=== PATIENT | female | born 1995 | race Caucasian/White ===

== ENCOUNTER 2025-01-18 16:17 | Emergency (ER) | payer BC, SELFPAY ==
[2025-01-18] VITALS (7 sets, daily range): BP systolic 121–153; BP diastolic 79–102; PULSE 68–100; RESP 16–20; TEMP 36.8; O2SAT 98–99; BMI 43.9
--- NOTE | 2025-01-18 16:49 | ED.FEMALEGU ---
HPI - Female Genitourinary General Chief complaint: Urogenital Problems, Female <Marco A Rayo MD - Last Filed: 01/19/25 07:23> Stated complaint: Blood in Urine <Marco A Rayo MD - Last Filed: 01/19/25 07:23> Time Seen by Provider: 01/18/25 16:40 <Marco A Rayo MD - Last Filed: 01/19/25 07:23> History of Present Illness HPI Narrative: Patient is a 3 para [age]-year-old woman who is 27 weeks with her 2nd child. She comes in today with a 6 hours of hematuria. She has not felt any contractions. She does not believes she is having vaginal discharge. She has had normal movements today. She has had no cough no shortness of breath no abdominal pain. Urinary frequency and hematuria accompanied by mild dysuria. No other complaints or concerns. <Marco A Rayo MD - Last Filed: 01/19/25 07:23> Related Data Home medications: Home Medications ?Medication ?Instructions ?Recorded ?Confirmed aspirin 81 mg tablet,delayed 81 mg PO QDAY 12/22/24 01/18/25 release (Adult Aspirin Regimen) vits no.126-ferrous fum tab PO QDAY 12/22/24 12/22/24 28 mg iron-folic acid 800 mcg tablet (Classic ) <Marco A Rayo MD - Last Filed: 01/19/25 07:23> Allergies/Adverse reactions: Allergies Allergy/AdvReac Type Severity Reaction Status Date / Time No Known Drug Allergies Allergy Verified 01/18/25 16:30 <Marco A Rayo MD - Last Filed: 01/19/25 07:23> Review of Systems Status of ROS: Reports: 10 or more systems reviewed and unremarkable except as noted in History and below <Marco A Rayo MD - Last Filed: 01/19/25 07:23> [facility] Medical History: Medical History History of irregular menstrual bleeding ?Z87.42 - Personal history of other diseases of the female genital tract (ICD-10) History of IUFD (05/07/20) ?Z87.59 - Personal history of other complications of , childbirth and the puerperium (ICD-10) <Marco A Rayo MD - Last Filed: 01/19/25 07:23> Surgical History: Surgical History History of appendectomy (~2006) ?Z90.49 - Acquired absence of other specified parts of digestive tract (ICD-10) Status post primary low transverse section (04/01/21) ?Z98.891 - History of uterine scar from previous surgery (ICD-10) <Marco A Rayo MD - Last Filed: 01/19/25 07:23> Social History: Social History Narrative: Cis-gender, heterosexual woman. Relationship status: . Spouse/Partner: Bipin Education: not reported Occupation: Not reported Tobacco: Lifetime nonsmoker E-cigarettes: No Alcohol: None during Illicit/recreational drugs: No Safety concerns at home or work: None Dietary restriction(s): None Exercise: No. Smoking Status: Never smoker How often do you have a drink containing alcohol: never AUDIT-C Alcohol total score: 0 Non-prescribed substance use: denies use <Marco A Rayo MD - Last Filed: 01/19/25 07:23> Exam Narrative: Exam Narrative: EXAM GENERAL: Patient appears comfortable and well. EYES: No scleral icterus. LYMPH: No supraclavicular or cervical lymphadenopathy. SKIN: Visible skin seen during exam normal or with benign process only. EXT: No dependent lower extremity pedal edema. HEART: Regular rate and rhythm with a soft 2/6 systolic murmur. LUNGS: Clear to auscultation bilaterally with no crackles or wheezes. ABD: Soft, non tender, non distended. Gravid. PSYCH: Good eye contact, speech is not pressured. <Marco A Rayo MD - Last Filed: 01/19/25 07:23> Const: Vital Signs, click to edit/add: Vital Signs - 24 hr 01/18/25 16:32 01/18/25 16:36 01/18/25 17:25 Temperature 98.3 F Pulse Rate Pulse Rate [Pulse Oximeter] 100 Respiratory Rate 20 Blood Pressure 139/99 H Blood Pressure [Ri ght Upper Arm] 153/102 H 146/89 H Pulse Oximetry 98 Oxygen Delivery Me thod Room Air 01/18/25 17:31 01/18/25 18:01 01/18/25 18:31 Temperature Pulse Rate Pulse Rate [Pulse Oximeter] Respiratory Rate Blood Pressure 143/90 H 125/82 132/85 Blood Pressure [Ri ght Upper Arm] Pulse Oximetry Oxygen Delivery Me thod 01/18/25 19:01 Temperature Pulse Rate 68 Pulse Rate [Pulse Oximeter] Respiratory Rate 16 Blood Pressure 121/79 Blood Pressure [Ri ght Upper Arm] Pulse Oximetry 99 Oxygen Delivery Me thod <Marco A Rayo MD - Last Filed: 01/19/25 07:23> Vital Signs, click to edit/add: Vital Signs - 24 hr 01/18/25 16:32 01/18/25 16:36 01/18/25 17:25 Temperature 98.3 F Pulse Rate Pulse Rate [Pulse Oximeter] 100 Respiratory Rate 20 Blood Pressure 139/99 H Blood Pressure [Ri ght Upper Arm] 153/102 H 146/89 H Pulse Oximetry 98 Oxygen Delivery Me thod Room Air 01/18/25 17:31 01/18/25 18:01 01/18/25 18:31 Temperature Pulse Rate Pulse Rate [Pulse Oximeter] Respiratory Rate Blood Pressure 143/90 H 125/82 132/85 Blood Pressure [Ri ght Upper Arm] Pulse Oximetry Oxygen Delivery Me thod 01/18/25 19:01 Temperature Pulse Rate 68 Pulse Rate [Pulse Oximeter] Respiratory Rate 16 Blood Pressure 121/79 Blood Pressure [Ri ght Upper Arm] Pulse Oximetry 99 Oxygen Delivery Me thod <Jose F Keith MD - Last Filed: 01/18/25 18:59> Course Course ED Course: Patient seen and examined. Urinalysis pending. <Marco A Rayo MD - Last Filed: 01/19/25 07:23> Reevaluation(s) Reevaluation #1: Spoke to obstetrics. They do recommend CBC electrolytes liver function tests given her elevated blood pressure. We are following her blood pressure Q 30 minutes while she is here. <Marco A Rayo MD - Last Filed: 01/19/25 07:23> Vital Signs Vital signs: Initial Vital Signs Temperature 98.3 F 01/18/25 16:32 Temperature Source Temporal Artery Scan 01/18/25 16:32 Pulse Rate 100 01/18/25 16:32 Respiratory Rate 20 01/18/25 16:32 Blood Pressure 153/102 H 01/18/25 16:32 Blood Pressure Mean 119 H 01/18/25 16:32 Pulse Oximetry 98 01/18/25 16:32 Oxygen Delivery Method Room Air 01/18/25 16:32 Vital Signs Temperature 98.3 F 01/18/25 16:32 Pulse Rate 100 01/18/25 16:32 Respiratory Rate 20 01/18/25 16:32 Blood Pressure 153/102 H 01/18/25 16:32 Pulse Oximetry 98 01/18/25 16:32 Oxygen Delivery Method Room Air 01/18/25 16:32 Temperature 98.3 F 01/18/25 16:32 Pulse Rate 68 01/18/25 19:01 Respiratory Rate 16 01/18/25 19:01 Blood Pressure 121/79 01/18/25 19:01 Pulse Oximetry 99 01/18/25 19:01 Oxygen Delivery Method Room Air 01/18/25 16:32 <Marco A Rayo MD - Last Filed: 01/19/25 07:23> Initial Vital Signs Temperature 98.3 F 01/18/25 16:32 Temperature Source Temporal Artery Scan 01/18/25 16:32 Pulse Rate 100 01/18/25 16:32 Respiratory Rate 20 01/18/25 16:32 Blood Pressure 153/102 H 01/18/25 16:32 Blood Pressure Mean 119 H 01/18/25 16:32 Pulse Oximetry 98 01/18/25 16:32 Oxygen Delivery Method Room Air 01/18/25 16:32 Vital Signs Temperature 98.3 F 01/18/25 16:32 Pulse Rate 100 01/18/25 16:32 Respiratory Rate 20 01/18/25 16:32 Blood Pressure 153/102 H 01/18/25 16:32 Pulse Oximetry 98 01/18/25 16:32 Oxygen Delivery Method Room Air 01/18/25 16:32 Temperature 98.3 F 01/18/25 16:32 Pulse Rate 68 01/18/25 19:01 Respiratory Rate 16 01/18/25 19:01 Blood Pressure 121/79 01/18/25 19:01 Pulse Oximetry 99 01/18/25 19:01 Oxygen Delivery Method Room Air 01/18/25 16:32 <Jose F Keith MD - Last Filed: 01/18/25 18:59> Medications Administered Medications: Discontinued Medications Generic Name Dose Route Start Last Admin Trade Name Freq PRN Reason Stop Dose Admin Ceftriaxone Sodium 1 gm 01/18/25 18:53 01/18/25 19:03 Ceftriaxone 1 Gm Vial IM 01/18/25 18:54 1 gm ONCE ONE Administration Ceftriaxone Sodium 1 gm/ 100 mls @ 200 mls/hr 01/18/25 18:20 01/18/25 19:03 Sodium Chloride IVPB 01/18/25 18:21 Not Given ONCE ONE Lidocaine HCl 2.1 ml 01/18/25 18:53 01/18/25 19:03 Lidocaine 1% 5 Ml (Pf) 5 Ml Vial IM 2.1 ml DIRECTED PRN Administration Pain <Marco A Rayo MD - Last Filed: 01/19/25 07:23> Discontinued Medications Generic Name Dose Route Start Last Admin Trade Name Freq PRN Reason Stop Dose Admin Ceftriaxone Sodium 1 gm 01/18/25 18:53 01/18/25 19:03 Ceftriaxone 1 Gm Vial IM 01/18/25 18:54 1 gm ONCE ONE Administration Ceftriaxone Sodium 1 gm/ 100 mls @ 200 mls/hr 01/18/25 18:20 01/18/25 19:03 Sodium Chloride IVPB 01/18/25 18:21 Not Given ONCE ONE Lidocaine HCl 2.1 ml 01/18/25 18:53 01/18/25 19:03 Lidocaine 1% 5 Ml (Pf) 5 Ml Vial IM 2.1 ml DIRECTED PRN Administration Pain <Jose F Keith MD - Last Filed: 01/18/25 18:59> MDM - Female Genitourinary MDM Narrative Medical decision making narrative: Sagar -- I inherited this patient in handoff a change of shift pending lab results. Has hypertension in . She is 27 weeks. Has been receiving regular blood pressure checks. In hand off noted to have reassuring NST. Consultation has been made with OBGYN. Labs look unremarkable other than appears to have urinary tract infection. I have requested Rocephin anticipating Keflex outpatient. Blood pressures have improved during time in the ER. 125/82 was recently measured. 135/83 OBGYN consult recommending close follow-up in clinic. <Jose F Keith MD - Last Filed: 01/18/25 18:59> Lab Data Attestation: I reviewed the patient's lab results. <Jose F Keith MD - Last Filed: 01/18/25 18:59> Labs: Lab Results 01/18/25 01/18/25 01/18/25 Range/Units 17:15 18:19 Unknown WBC 10.46 (4.50-11.00) K/uL RBC 4.49 (4.00-5.20) m/uL Hgb 13.1 (12.0-16.0) gm/dL Hct 39.0 (33.0-51.0) % MCV 87 (80-100) fL MCH 29 (26-34) pg MCHC 34 (32-36) gm/dL RDW Coeff of Ananya 13.3 (11.5-15.5) % Plt Count 288 (140-440) K/uL Neut % (Auto) 71.1 (42.0-72.0) % Lymph % (Auto) 20.4 (20-44) % Harrison % (Auto) 7.3 (0.0-11.0) % Eos % (Auto) 0.7 (0.0-7.0) % Baso % (Auto) 0.3 (0.0-3.0) % Neut # (Auto) 7.45 H (1.7-7.0) K/uL Lymph # (Auto) 2.13 (0.90-2.90) K/uL Harrison # (Auto) 0.80 (0.00-0.90) K/UL Eos # (Auto) 0.07 (0.00-0.50) K/uL Baso # (Auto) 0.03 (0.00-0.30) K/uL Abs Immat Gran (auto) 0.02 (0.00-0.30) K/uL Imm/Tot Granulo (auto) 0.2 % Sodium 136 (135-149) mmol/L Potassium 3.9 (3.6-5.1) mmol/L Chloride 107 (96-114) mmol/L Carbon Dioxide 22 (20-32) mmol/L Anion Gap 7 (7-15) mEq/L BUN 7 (5-24) mg/dL Creatinine 0.5 (0.5-1.5) mg/dL Estimated Creat Clear 162.90 Estimated GFR 131 ml/min Glucose 101 (60-115) mg/dL Calcium 9.7 (8.4-10.6) mg/dL Magnesium 1.7 (1.5-2.6) mg/dL Total Bilirubin 0.4 (0.1-1.5) mg/dL AST 22 (12-35) U/L ALT 19 (4-35) U/L Alkaline Phosphatase 85 (40-150) U/L Total Protein 7.3 (6.0-8.3) g/dL Albumin 4.0 (3.3-5.0) g/dL Urine Color Red A (Yellow) Urine Appearance Cloudy A (Clear) Urine pH 6.5 (5.0-8.5) Ur Specific [place] 1.020 (1.000-1.030) Urine Protein 3+ A (Negative) Urine Glucose (UA) Negative (Negative) Urine Ketones 1+ A (Negative) Urine Blood 3+ A (Negative) Urine Nitrite Positive A (Negative) Urine Bilirubin 2+ A (Negative) Urine Urobilinogen 4.0 A (0.2-1.0) Ur Leukocyte Esterase 3+ A (Negative) Urine RBC 50-100 A (0-2) Urine WBC 50-100 A (0-5) Ur Squamous Epith Cells None (None-Few) Urine Bacteria Moderate A (None) Lab Acknowledgement Test Added <Marco A Rayo MD - Last Filed: 01/19/25 07:23> Lab Results 01/18/25 01/18/25 01/18/25 Range/Units 17:15 18:19 Unknown WBC 10.46 (4.50-11.00) K/uL RBC 4.49 (4.00-5.20) m/uL Hgb 13.1 (12.0-16.0) gm/dL Hct 39.0 (33.0-51.0) % MCV 87 (80-100) fL MCH 29 (26-34) pg MCHC 34 (32-36) gm/dL RDW Coeff of Ananya 13.3 (11.5-15.5) % Plt Count 288 (140-440) K/uL Neut % (Auto) 71.1 (42.0-72.0) % Lymph % (Auto) 20.4 (20-44) % Harrison % (Auto) 7.3 (0.0-11.0) % Eos % (Auto) 0.7 (0.0-7.0) % Baso % (Auto) 0.3 (0.0-3.0) % Neut # (Auto) 7.45 H (1.7-7.0) K/uL Lymph # (Auto) 2.13 (0.90-2.90) K/uL Harrison # (Auto) 0.80 (0.00-0.90) K/UL Eos # (Auto) 0.07 (0.00-0.50) K/uL Baso # (Auto) 0.03 (0.00-0.30) K/uL Abs Immat Gran (auto) 0.02 (0.00-0.30) K/uL Imm/Tot Granulo (auto) 0.2 % Sodium 136 (135-149) mmol/L Potassium 3.9 (3.6-5.1) mmol/L Chloride 107 (96-114) mmol/L Carbon Dioxide 22 (20-32) mmol/L Anion Gap 7 (7-15) mEq/L BUN 7 (5-24) mg/dL Creatinine 0.5 (0.5-1.5) mg/dL Estimated Creat Clear 162.90 Estimated GFR 131 ml/min Glucose 101 (60-115) mg/dL Calcium 9.7 (8.4-10.6) mg/dL Magnesium 1.7 (1.5-2.6) mg/dL Total Bilirubin 0.4 (0.1-1.5) mg/dL AST 22 (12-35) U/L ALT 19 (4-35) U/L Alkaline Phosphatase 85 (40-150) U/L Total Protein 7.3 (6.0-8.3) g/dL Albumin 4.0 (3.3-5.0) g/dL Urine Color Red A (Yellow) Urine Appearance Cloudy A (Clear) Urine pH 6.5 (5.0-8.5) Ur Specific [place] 1.020 (1.000-1.030) Urine Protein 3+ A (Negative) Urine Glucose (UA) Negative (Negative) Urine Ketones 1+ A (Negative) Urine Blood 3+ A (Negative) Urine Nitrite Positive A (Negative) Urine Bilirubin 2+ A (Negative) Urine Urobilinogen 4.0 A (0.2-1.0) Ur Leukocyte Esterase 3+ A (Negative) Urine RBC 50-100 A (0-2) Urine WBC 50-100 A (0-5) Ur Squamous Epith Cells None (None-Few) Urine Bacteria Moderate A (None) Lab Acknowledgement Test Added <Jose F Keith MD - Last Filed: 01/18/25 18:59> Discharge Plan Discharge Clinical Impression: Cystitis, High blood pressure affecting in third trimester, antepartum <Marco A Rayo MD - Last Filed: 01/19/25 07:23> Patient Disposition: Home w/ Parent or Adult <Marco A Rayo MD - Last Filed: 01/19/25 07:23> Condition: Improved <Marco A Rayo MD - Last Filed: 01/19/25 07:23> Additional Instructions: Stay well-hydrated. Prescribing cephalexin from [facility]. Urine culture will be pending. Will call you if any changes need to be made to antibiotics. Please follow-up as as scheduled at your OB Clinic. <Marco A Rayo MD - Last Filed: 01/19/25 07:23> Prescriptions: No Action Classic 28 mg iron- 800 mcg tablet PO QDAY aspirin [Adult Aspirin Regimen] 81 mg tablet,delayed release (DR/EC) 81 mg PO QDAY <Marco A Rayo MD - Last Filed: 01/19/25 07:23> Follow Up/Referrals: Precious Newton MD [Primary Care Provider, Family Practice] <Marco A Rayo MD - Last Filed: 01/19/25 07:23> Stand Alone Forms: [facility] Info Instructions <Marco A Rayo MD - Last Filed: 01/19/25 07:23>
[2025-01-18 16:56] LABS: Appearance Urine Cloudy (Clear); Bilirubin Urine 2+ (Negative); Blood Urine 3+ (Negative); Color Urine Red (Yellow); Glucose Urine Negative (Negative); Ketones Urine 1+ (Negative); Leukocyte Esterase Urine 3+ (Negative); Nitrite Urine Positive (Negative); Protein Urine 3+ (Negative); pH Urine 6.5 (5.0-8.5)
[2025-01-18 17:03] LABS: Bacteria Urine Moderate; RBC Urine 50-100 (0-2); WBC Urine 50-100 (0-5)
[2025-01-18 17:20] LABS: Basophils Absolute Auto 0.03 K/uL (0.00-0.30); Basophils Percent Auto 0.3 % (0.0-3.0); Eosinophils Absolute Auto 0.07 K/uL (0.00-0.50); Eosinophils Percent Auto 0.7 % (0.0-7.0); Hemoglobin* 13.1 gm/dL (12.0-16.0); Immature Granulocytes Abs Auto 0.02 K/uL (0.00-0.30); Immature Granulocytes Pct Auto 0.2 %; Lymphocytes Absolute Auto 2.13 K/uL (0.90-2.90); Lymphocytes Percent Auto 20.4 % (20-44); Mean Corpuscular HGB Conc 34 gm/dL (32-36); Mean Corpuscular Hemoglobin 29 pg (26-34); Mean Corpuscular Volume 87 fL (80-100); Monocytes Percent Auto 7.3 % (0.0-11.0); Neutrophils Absolute Auto 7.45 K/uL (1.7-7.0); Neutrophils Percent Auto 71.1 % (42.0-72.0); Platelet Count* 288 K/uL (140-440); RDW Coefficient of Variation % 13.3 % (11.5-15.5); Red Blood Count 4.49 m/uL (4.00-5.20); White Blood Count* 10.46 K/uL (4.50-11.00)
[2025-01-18 17:24] LABS: Slide Review Reflex No
[2025-01-18 17:33] LABS: Chloride* 107 mmol/L (96-114)
[2025-01-18 17:34] LABS: Potassium* 3.9 mmol/L (3.6-5.1); Sodium* 136 mmol/L (135-149)
[2025-01-18 17:37] LABS: Alkaline Phosphatase* 85 U/L (40-150); Anion Gap 7 mEq/L (7-15); Bilirubin Total* 0.4 mg/dL (0.1-1.5); Blood Urea Nitrogen* 7 mg/dL (5-24); Calcium* 9.7 mg/dL (8.4-10.6); Carbon Dioxide* 22 mmol/L (20-32); Creatinine* 0.5 mg/dL (0.5-1.5); Estimated Glomerular Filt Rate 131 ml/min; Glucose* 101 mg/dL (60-115); Total Protein* 7.3 g/dL (6.0-8.3)
[2025-01-18 17:38] LABS: Alanine Aminotransferase* 19 U/L (4-35); Aspartate Amino Transferase* 22 U/L (12-35)
--- OUTSIDE RECORDS SUMMARY | 2025-01-18 17:57 | XMS_ITS | Clinical Summary ---
Author Organization [employer] [facility] Address [address] [place] [id number] Care Team Providers Care Senior Telecommunications Technician Name Role Phone AmanZita mcbride MD Primary Care Provider Allergies No known active allergies Medications vit 28/iron fum/folic (MULTIVITAMIN FOLIC ACID 1 MG) Take 1 tablet by mouth once daily. 0 0 Active aspirin chewable 81 mg chewable tabletIndication s:Maternal obesity syndrome in first trimester (HC),Encounter for supervision of other normal in first trimester (HC),History of loss Chew 1 Tablet (81 mg) by mouth once daily with a meal. 5 Active Breast Pump PurchaseIndicati ons:Care and examination of lactating mother (HC) Electric breast pump for home use. Gestational age at delivery: 40 weeks. Reason for need: return to work. Length of need: 99 months (lifetime use) 1 Each 5 Active Active Problems Problem Noted Date Diagnosed Date Maternal morbid obesity in second trimester, ant epartum 12/01/2024 Prior with d emise and current in second trimester 12/01/2024 History of delivery affecting 12/01/2024 [facility] High-risk supervision 10/21/2024 Overview (11/24/2024): Lluvia Medley : 1995 REFERRING PROVIDER/CLINIC LOCATION/FAX #: Zita Newton MD, Primary provider approves scheduling of recommended ultrasounds/testing: No [facility] ULTRASOUND/TESTING PATIENT Support person name: Bipin ULTRASOUND TYPE: L2 REASON FOR VISIT: BMI, HX IUFD 27w1d NEXT VISIT ALERTS: Final DANITA by Early Ultrasound LMP Date: Patient's last menstrual period was 06/22/2024 (exact date). DANITA: 03/29/25 Early US: Date: 09/17/24 GA: 10w0d DANITA: 04/15/2025. PrePregnancy Weight: 271.4 Height: 67.44 in BMI: 42 PLANS & FUTURE APPOINTMENTS: ULTRASOUND/GROWTH PLAN: - Through: - Growth: Next TESTING PLAN: - Testing: Through DELIVERY PLAN: Desires TOLAC - Scheduled delivery: - Preferred delivery location: PRIMARY DIAGNOSIS: 29 y.o. Estimated Date of Delivery: 04/15/25 MATERNAL BMI 42 Anxiety 2020 Term P LTCS -breech presentation 2019 27w1d IUFD, POC- Normal female karyotype PREVIOUS ULTRASOUNDS: 12/01/24 20w5d ECHO: SPECIALISTS/CONSULTS: Include: Specialty MD Clinic Name Phone# [place] and ADDED TO PATIENT CARE TEAM GENETICS: Declines/Not Done CARE COORDINATION: PERTINENT LABS: Labs reviewed? Yes Normal? Yes Blood type: O Rh Positive Antibody screen: Negative Non-[facility] labs need to be entered in EPIC? [facility] + PERTINENT MEDS: bASA PROCEDURES: IF FGR <10% or EFW <2000 grams: Add FGRPCOM PLAN OF CARE: 09/04/2024 Overview (09/04/2024): Estimated Date of Delivery: 03/29/25 Patient's last menstrual period was 06/22/2024 (exact date). GBS: 28wk labs: Last Tdap: 2020 Last Flu vaccine: 06/09/24 OB Labs: ABORH Date Value Ref Range Status 09/02/2024 O Rh Positive Final ANTIBODY SCREEN Date Value Ref Range Status 09/02/2024 Negative Negative Final TREPONEMA PALLIDUM Date Value Ref Range Status 09/02/2024 Non-Reactive Non-Reactive Final RUBELLA AB (IGG), IMMUNE STATUS Date Value Ref Range Status 09/02/2024 3.71 Index Final Comment: Index Interpretation ----- <0.90 Not consistent with immunity 0.90-0.99 Equivocal > or = 1.00 Consistent with immunity HEPATITIS B SURFACE ANTIGEN Date Value Ref Range Status 09/02/2024 NON-REACTIVE NON-REACTIVE Final HEPATITIS C ANTIBODY Date Value Ref Range Status 09/02/2024 NON-REACTIVE NON-REACTIVE Final HIV AG/AB, 4TH GEN Date Value Ref Range Status 09/02/2024 NON-REACTIVE NON-REACTIVE Final VARICELLA ZOSTER VIRUS ANTIBODY (IGG) Date Value Ref Range Status 09/02/2024 1.92 S/CO Final Comment: Signal to Cut-off S/CO Interpretation --------- <1.00 Negative - Antibody not detected > or = 1.00 Positive - Antibody detected HEMOGLOBIN Date Value Ref Range Status 09/02/2024 15.9 (H) 11.7 - 15.5 g/dL Final PLATELET COUNT Date Value Ref Range Status 09/02/2024 388 140 - 400 Thousand/uL Final CHLAMYDIA PROBE Date Value Ref Range Status 09/02/2024 Negative Final N GONORRHOEAE PROBE Date Value Ref Range Status 09/02/2024 Negative Final No Known Allergies OB History Para Term AB Living 4 2 1 1 1 1 SAB IAB Ectopic Multiple Live Births 1 0 0 0 1 # Outcome Date GA Lbr Timur/2nd Weight Sex Type Anes PTL Lv 4 Current 3 Term 04/01/21 39w3d 3.43 kg (7 lb 9 oz) M CS-LTranv SAURABH Name: Rene 2 05/08/20 27w1d F Vag FD 1 SAB 03/06/13 Comments: System Generated. Please review and update details. Obstetric Comments Breech Past Medical History: . Date History of intrauterine in previous No Significant Past Medical History 09/30/2020 Component Latest Ref Rng & Units 03/10/2021 HEMOGLOBIN 12.0 - 16.0 g/dL 14.6 MCV 80 - 100 fL 85 Vaginal/Rectal OB Strep B PCR Negative HEPATITIS C ANTIBODY Non-Reactive Non-Reactive Estimated Date of Delivery: 04/05/21 Patient's last menstrual period was 06/29/2020. Last Tdap- 01/05/2021 Past Surgical History: . Laterality Date APPENDECTOMY 08/13/2005 SECTION 03/2021 Paraguard T 03/28/2013 Problems (from 09/02/24 to present) No problems associated with this episode. Dianelys Ayala RN ....09/04/2024 3:42 PM Pap smear for cervical cancer screening 06/13/20 Overview (06/13/2024): 05/2024 NIL/HPV negative Plan: Pap/HPV due 05/2029 Generalized anxiety disorder 10/09/2012 Estimated Date of Delivery Comme nts Yes 04/15/2025 Based on Ultraso und Resolved Problems Problem Noted Date Diagnosed Date Resolved Date Encounter for supervision of normal in second trimester 12/01/2020 09/17/2024 09/30/2020 09/04/2024 Overview (03/16/2021): Component Latest Ref Rng & Units 03/10/2021 HEMOGLOBIN 12.0 - 16.0 g/dL 14.6 MCV 80 - 100 fL 85 Vaginal/Rectal OB Strep B PCR Negative HEPATITIS C ANTIBODY Non-Reactive Non-Reactive Estimated Date of Delivery: 04/05/21 Patient's last menstrual period was 06/29/2020. Last Tdap- 01/05/2021 Last Flu vaccine- 04/20/2020 Glucose (GTT) result- Component Latest Ref Rng & Units 12/31/2020 HEMOGLOBIN 12.0 - 16.0 g/dL 13.6 MCV 80 - 100 fL 87 GLUCOSE,GESTATIONAL 65 - 139 mg/dL 118 TREPONEMA PALLIDUM Negative Negative 20 week US: IMPRESSION: Intrauterine at 20w 2d. presentation is Cephalic. EFW 376 grams, percentile: 67. Growth parameters and estimated weight are appropriate for gestational age. No major structural anomalies identified. No markers for aneuploidy identified. Normal Deepest Vertical Pocket of amniotic fluid: 4.8 cm. Placental location: Anterior fundal. There is no evidence of placenta previa. The transabdominal cervical length is 3.6 cm. No Known Allergies OB History Para Term AB Living 3 1 0 1 1 0 SAB TAB Ectopic Multiple Live Births 1 0 0 0 0 # Outcome Date GA Lbr Timur/2nd Weight Sex Delivery Anes PTL Lv 3 Current 2 05/08/20 27w1d F Vag FD 1 SAB 03/06/13 Comments: System Generated. Please review and update details. Create lab flowsheet for OB labs- Component Latest Ref Rng & Units 09/13/2020 09/13/2020 09/13/2020 4:35 PM 4:35 PM 4:35 PM HEMOGLOBIN 12.0 - 16.0 g/dL 15.8 MCV 80 - 100 fL 84 ANTIBODY SCREEN Negative Negative SPECIMEN EXPIRATION DATE/TIME 09/16/20 23:59 RUBELLA IGG ANTIBODY Positive 5.11 HIV-1/HIV-2 ANTIBODY Non-Reactive Non-Reactive ABORH O Rh Positive HBSAG Nonreactive Nonreactive TREPONEMA PALLIDUM Negative Negative Past Medical History: . Date No Significant Past Medical History Past Surgical History: . Laterality Date APPENDECTOMY 2006 Paraguard T 03/28/2013 No data on file. 2 Problems (from 09/29/20 to present) No problems associated with this episode. Rosemarie Manzano RN.....09/30/2020 9:52 AM Encounter for supervision of normal first in second trimester 02/24/2020 05/14/2020 01/27/2020 05/14/2020 Overview (04/21/2020): Estimated Date of Delivery: 08/06/20 Patient's last menstrual period was 10/31/2019 (exact date). Last Tdap- 04/04/2007 Last Flu vaccine- 04/20/2020 Glucose (GTT) result- too early 20 week US: FINDINGS: Sonographic imaging demonstrates a single living intrauterine gestation. Fetus demonstrates a regular cardiac rate of 156 beats per minute. Fetus has a breech position. The placenta lies anteriorly without evidence of placenta previa. Amniotic fluid volume appears normal. Single deepest vertical pocket: 3.8 cm. The cervix is closed and measures 4.2 cm in length. The composite ultrasound gestational age is calculated at 20 weeks 1 day with an estimated sonographic due date of 08/09/2020. No Known Allergies OB History Para Term AB Living 2 0 0 0 1 0 SAB TAB Ectopic Multiple Live Births 1 0 0 0 0 # Outcome Date GA Lbr Timur/2nd Weight Sex Delivery Anes PTL Lv 2 Current 1 SAB 03/06/13 Comments: System Generated. Please review and update details. Create lab flowsheet for OB labs- Component Latest Ref Rng & Units 12/16/2019 12/16/2019 12/16/2019 8:51 AM 8:51 AM 8:51 AM ANTIBODY SCREEN Negative Negative SPECIMEN EXPIRATION DATE/TIME 12/19/19 23:59 HEMOGLOBIN 12.0 - 16.0 g/dL 15.2 MCV 80 - 100 fL 86 PLATELET COUNT 140 - 440 thou/cu mm 324 MPV 6.5 - 11.0 fL 9.6 RUBELLA IGG ANTIBODY Positive 5.07 HEMOGLOBIN A1C SCREENING <=6.4 % 4.8 ABORH O Rh Positive HBSAG Nonreactive Nonreactive HEPATITIS C ANTIBODY Non-Reactive Non-Reactive HIV-1/HIV-2 ANTIBODY Non-Reactive Non-Reactive TREPONEMA PALLIDUM Negative Negative Past Medical History: . Date No Significant Past Medical History Past Surgical History: . Laterality Date APPENDECTOMY 2006 Paraguard T 03/28/2013 No data on file. Problems (from 12/16/19 to present) No problems associated with this episode. Rosemarie Garnica RNC.....01/27/2020 12:46 PM Supervision of normal first 02/25/2013 03/18/2013 Encounters Date Type Department Care Team Description 12/24/2024 3:40 PM CDT OB Encounter [facility] [address] [place] [address] Zita Newton MD Care (24w/) 12/24/2024 Travel 12/01/2024 1:31 PM CDT - 12/01/2024 11:59 PM CDT Hospital En[facility] [address] [facility] [address] [facility] [address] Zita Newton MD Supervision of high risk in second trimester (HC) (Primary Dx); Maternal obesity syndrome in first trimester (HC); Encounter for supervision of other normal in first trimester (HC); History of loss; High-risk in second trimester (HC); Maternal morbid obesity in second trimester, antepartum (HC); Prior with demise and current in second trimester (HC); History of delivery affecting (HC) 12/01/2024 Travel 11/26/2024 2:50 PM CDT OB Encounter [facility] [address] [place] [address] Zita Newton MD Care (20W/Possible UTI, had blood in her urine) 11/25/2024 Travel 11/17/2024 Telephone [facility] [address] [place] [address] Zita Newton MD Appointment 11/16/2024 Travel 10/21/2024 Transcribe Orders [facility] [address] [place] [address] Zita Newton MD 10/20/2024 3:30 PM CDT OB Encounter [facility] [address] [place] [address] Zita Newton MD Care (14w 5d/) 10/20/2024 Travel from Last 3 Months Immunizations Immunization Administration Dates Next Due COVID-19 vaccine (MDCapsule NTech 30mcg/0.3mL) WINNIE SERRA 12/27/2020,12/27/2020,12/03/2020,12/03 DTP 05/07/1997, 7,1996,03/31 DTP-HIB 1996,1996,1996 DTaP 05/07/1997 HPV 9 (Gardasil 9) 03/26/2015 Hepatitis B (Adult) 1995,1996 Hepatitis B (Peds) 1995, 6,1996,01/28 Hepatitis B, Unspecified 1996 Hib Conjugate, Unspecified 1996,1996 ,1996 Human Papilloma Virus Vaccine 02/16/2015 INFLUENZA, IIV3 PF (AGE >= 6 MO) 06/09/2024 Influenza, IIV4 05/16/2023,05/13/2021,04/20/2020 MENINGOCOCCAL VACCINE 2 VIAL 2MO-55YO (MENVEO) 02/16/2015 MMR 05/07/1997 Meningococcal Vaccine (Menactra) 04/04/2007 Oral Polio Vaccine 05/07/1997, 7,1996,03/31 Tdap 01/05/2021,04/04/2007 Varicella Vaccine 04/04/2007,05/07/1997 Family History Medical History Relation Name Comments No Known Problems Father Coronary artery disease Maternal Grandfather Skin cancer Maternal Grandmother No Known Problems Mother Unknown Paternal Grandfather Unknown Paternal Grandmother No Known Problems Son Relation Name Status Comments Father Alive Maternal Grandfather Alive Maternal Grandmother Alive Mother Alive Paternal Grandfather Paternal Grandmother Son Alive Social History Tobacco Use Types Packs/Day Years Used Date Smoking Tobacco: Never Smokeless Tobacco: Never Tobacco Cessation:Counseling Given: Yes Alcohol Use Standard Drinks/Week Comments No 0 (1 standard drink = 0.6 oz pur e alcohol) PHQ-2 Answer Date Recorded PHQ-2 TOTAL SCORE 0 09/17/2024 Social Connections Answer Date Recorded Do you often feel lonely or isolated from those around you? 0 09/17/2024 Financial Resource Strain Answer Date R ecorded Difficulty of Paying Living Expenses 3 09/17/2024 Difficulty of Paying Living Expenses Not on file 09/17/2024 Food Insecurity Answer Date Recorded Do you worry your food will run out before you are able to buy more? 1 09/17/2024 Transportation Needs Answer Date Record ed Does lack of transportation keep you from medica l appointments? 1 09/17/2024 Does lack of transportation keep you from work, meetings or getting things that you need? 1 09/17/2024 Housing Stability Answer Date Recorded What is your housing situation today? 1 09/17/2024 Utilities Answer Date Recorded Do you have trouble paying f or utilities (for example, heat, electricity, water, phone)? 1 09/17/2024 Estimated Date of Delivery Comme nts Yes 04/15/2025 Based on Ultraso und Sex and Gender Information Value Date Recorded Sex Assigned at Female 11/30/2020 7:26 PM CDT Legal Sex Female 8:19 AM BAKER DOUGHNUT Gender Identity Female 11/30/2020 7:26 PM CDT Sexual Orientation Not on file Obstetrics History Para Term AB IAB SAB Ectopic Multiple Livin g Live Births 4 2 1 1 1 1 1 1 Date Outcome GA Total Labor Labor/2nd/3rd Weight Sex Type Anes PTL Saurabh A1 A5 Name Clin 013 SAB Comments:System Genera mark. Please review and update details. 020 27w 1d F Vag Demis e 021 Term 39w 3d 3.43 kg (7 lb 9 oz) M CS-LT ranv Livin g Rene Delivery Location:Hospital Current Comments Breech Summary Episode Dates Number of Fetuses Estimated Date of Delivery 09/02/2024 - Present (01/18/2025) 04/15/2025 (set by Yves Newton MD on 09/17/2024 based on Ultrasound on 09/17/2024) Dating Summary Based On DANITA GA Diff Last Menstrual Period on 06/22/2024 (Exact Date) 03/29/2025 +2w3d Comment:Has only had three p eriods since July 2023 Ultrasound on 09/17/2024 04/15/2025 Working GA:10w0d Vitals Pregravid Weight Height TWG (As of 01/18/2025) Pregrav id BMI 1.713 m (5' 7.44) Date GA Fund Present FHR Mvmt BP Weight Edema Alb Glu Ket Dil/ Eff/Sta 5 20w5d Inpatient data not displayed here. See encounter summary. Notes Progress Notes - OB Encounte r - 12/24/2024 - GA:24w0d 12/24/2024 - 24w0d - Zita Newton MD SUBJECTIVE: Lluvia Medley is a 29 y.o. female at 24 weeks. No concerns. See visit comments. OBJECTIVE: see OB vitals flow sheet ASSESSMENT : 24 weeks gestation Prior IUFD. Hx for breech, would like to TOLAC this . Maternal obesity, on 81 mg ASA PLAN: labor signs and symptoms reviewed with patient including pain, cramping, bleeding or leaking fluid. Follow up in 4 weeks with diabetes, hemoglobin, syphilis screening, growth ultrasound and TDaP. Consult with upper cutter for TOLAC. Will start weekly BPP at 30 weeks adn growth again at 34 weeks. RTC 4 weeks. Zita Newton MD .................... 12/24/2024 3:46 PM Progress Notes - OB Encounte r - 11/26/2024 - GA:20w0d 11/26/2024 - 20wd - Zita Newton MD SUBJECTIVE: Lluvia Medley is a 29 y.o. female at 20 weeks. Having increased frequency, wonders if UTI? See visit comments. OBJECTIVE: see OB vitals flow sheet ASSESSMENT : 20 weeks gestation Maternal obesity. Prior loss. Borderline blood pressure readings. Hx for breech presentation, hoping for TOLAC PLAN: labor signs and symptoms reviewed with patient including pain, cramping, bleeding or leaking fluid. Has level 2 ultrasound and consult 12/01/24 On ASA 81 mg [employer] Bever[employer] Intern consult for TOLAC UA for UTI symptoms. RTC 4 weeks. Zita Newton MD .................... 11/26/2024 3:06 PM Progress Notes - OB Encounte r - 10/20/2024 - GA:14w5d 10/20/2024 - wd - Zita Newton MD SUBJECTIVE: Lluvia Medley is a 29 y.o. female at 14+5 weeks. No concerns. See visit comments. OBJECTIVE: see OB vitals flow sheet ASSESSMENT : 14+5 weeks gestation Maternal obesity. Prior loss. Borderline blood pressure readings. Hx for breech presentation, hoping for TOLAC PLAN: Warning signs and symptoms reviewed with patient including pain, cramping, bleeding or leaking fluid. Level 2 ultrasound given maternal obesity and prior loss. Start 81 mg ASA. Food And Beverage Intern consult after ultrasound for TOLAC consent. RTC 4 weeks. Zita Newton MD .................... 10/20/2024 3:40 PM Progress Notes - OB Encounte r - 09/17/2024 - GA:10w0d 09/17/2024 - 10w0d - Zita Newton MD FIRST OB VISIT HPI: Lluvia Medley is a 29 y.o. female at 12w3d with [place] intrauterine here today for a initial OB exam. Estimated due date is Estimated Date of Delivery: 03/29/25 based on LMP. ultrasound dating today puts her at 10 weeks, 0 days, EDC 04/15/2025 Nausea/Vomiting: yes Breast tenderness: no Fatigue: no Bleeding: no Taking vitamins: yes Options of sequential screen, cell-free DNA testing, amniocentesis were discussed. Patient is not interested in pursuing testing. AMA: no Previous : yes, is interested in TOLAC. Prior for breech presentation OB History Para Term AB Living 4 2 1 1 1 1 SAB IAB Ectopic Multiple Live Births 1 1 # Outcome Date GA Lbr Timur/2nd Weight Sex Type Anes PTL Lv 4 Current 3 Term 04/01/21 39w3d 3.43 kg (7 lb 9 oz) M CS-LTranv SAURABH 2 05/08/20 27w1d F Vag FD 1 SAB 03/06/13 Comments: System Generated. Please review and update details. Obstetric Comments Breech Past Medical History: . Date History of intrauterine in previous No Significant Past Medical History 09/30/2020 Component Latest Ref Rng & Units 03/10/2021 HEMOGLOBIN 12.0 - 16.0 g/dL 14.6 MCV 80 - 100 fL 85 Vaginal/Rectal OB Strep B PCR Negative HEPATITIS C ANTIBODY Non-Reactive Non-Reactive Estimated Date of Delivery: 04/05/21 Patient's last menstrual period was 06/29/2020. Last Tdap- 01/05/2021 Past Surgical History: . Laterality Date APPENDECTOMY 08/13/2005 SECTION 03/2021 Paraguard T 03/28/2013 Family History Problem Relation Age of Onset No Known Problems Mother No Known Problems Father No Known Problems Son Skin cancer Maternal Grandmother Coronary artery disease Maternal Grandfather Unknown Paternal Grandmother Unknown Paternal Grandfather Social History Tobacco Use Smoking status: Never Smokeless tobacco: Never Substance Use Topics Alcohol use: No Current Outpatient Medications Medication Sig vit 28/iron fum/folic (MULTIVITAMIN FOLIC ACID 1 MG) Take 1 tablet by mouth once daily. No current facility-administered medications for this visit. Medications have been reviewed by me and are current to the best of my knowledge and ability. ALLERGIES Patient has no known allergies. MENTAL HEALTH HISTORY History of psychiatric diagnosis: Anxiety Current mental health provider: not applicable Currently taking any psychiatric medications? No INFECTION HISTORY Current Drug Use: none Relevant infection history from OB Questionnaire: none REVIEW OF SYSTEMS Comprehensive ROS complete and negative other than noted in HPI and on OB Questionnaire. PHYSICAL EXAM BP 138/95 (Cuff Site: Right Arm, Position: Sitting, Cuff Size: Adult Large) Pulse 87 Wt 124.7 kg (275 lb) LMP 06/22/2024 (Exact Date) Comment: Has only had three periods since July 2023 SpO2 97% BMI 42.51 kg/m General Appearance: Alert, appropriate appearance for age. No acute distress. HEENT Exam: Grossly normal. Neck/Thyroid Exam: Supple, no masses, nodes or enlargement. Lungs: Clear to auscultation bilaterally. Breast Exam: Not indicated. Cardiovascular Exam: Regular rate and rhythm. S1, S2, no murmur. Abd: Soft, non-tender, no masses or organomegaly. Skin: no rashes or lesions. Lymphatics: no nodes palpable. Psychiatric Exam: Alert and oriented x 3, appropriate affect. Pelvic Exam: deferred ASSESSMENT/PLAN 29 y.o. at 10w0d with [place] intrauterine . ICD-10-CM 1. Encounter for supervision of other normal in first trimester Z34.81 2. Maternal obesity syndrome in first trimester O99.211 Satisfactory exam. Demonstrates appropriate and health-seeking behaviors toward her . Verbalizes good understanding of care schedule and the importance of coming to each visit as scheduled. Start/continue vitamins. Reviewed labs. She was encouraged to call the office with any questions or concerns. Will plan on level 2 ultrasound at 20 weeks for maternal obesity and history of stillbirth. Recommend 81 mg ASA starting at next visit due to BMI >30, elevated blood pressure today and history of prior loss. She is interested in TOLAC, will plan to consult with supportive employment case manager after 20 week ultrasound. Body mass index is 42.51 kg/m . Diet and expected weight gain discussed with patient. DEPRESSION SCREEN PHQ Score and Severity Date of PHQ exam: 09/17/24 PHQ-2 TOTAL SCORE: 0 Intervention: Not Depressed Zita Newton MD R DOUGHNUT Progress Notes - OB Encounte r - 09/02/2024 - GA:7w6d 09/02/2024 - 7wd - Dianelys Ayala RN SUBJECTIVE: Lluvia Medley is a 29 y.o. female, , who presents for confirmation and ob education. Patient presents to the clinic with spouse and son. Had positive test at home. This was Planned, Desired. Patient was not on contraception. Date Reliability: definite DANITA based on LMP: Estimated Date of Delivery: 03/29/25 Current symptoms include: Nausea:Yes Vomiting:No Breast tenderness:No Vaginal bleeding:No Vaginal discharge:No Pelvic cramping:Yes - mild Fatigue:Yes - managable Previous Delivery Type: - desires Occupation of patient: [employer] Name of Partner or Father of baby: Bipin. MENSTRUAL HISTORY: Patient's last menstrual period was 06/22/2024 (exact date).: Cycle Regularity: regular, every 28-30 days only 3 periods after getting nexplanon out 07/2023, but they were all regular Past Medical History: . Date History of intrauterine in previous No Significant Past Medical History OB History Para Term AB Living 4 2 1 1 1 1 SAB IAB Ectopic Multiple Live Births 1 1 # Outcome Date GA Lbr Timur/2nd Weight Sex Type Anes PTL Lv 4 Current 3 Term 04/01/21 39w3d 3.43 kg (7 lb 9 oz) M CS-LTranv SAURABH 2 05/08/20 27w1d F Vag FD 1 SAB 03/06/13 Comments: System Generated. Please review and update details. Obstetric Comments Breech 5P'S SUBSTANCE ABUSE SCREEN FOR ALCOHOL, DRUGS AND TOBACCO: Did any of your parents have a problem with using alcohol or drugs? No Do any of your friends (peers) have problems with drug or alcohol use? No Does your partner have a problem with drug or alcohol use? No Before you knew you were , how often did you drink beer, wine, wine coolers or liquor or use any kind of drug? Rarely alcohol In the past month, how often did you drink beer, wine, wine coolers or liquor or use any kind of drug? Not at all How much did you smoke, vape or use tobacco or nicotine in any form before you knew you were ? Don't Smoke, Vape or use Tobacco Genetic Screening Genetic Screening/Teratology Counseling- Includes patient, baby's father, or anyone in either family with: Patient's age 35 years or older as of estimated date of delivery: No Thalassemia (Turkmen, Macedonian, Mediterranean, or background): MCV less than 80: No Neural tube defect (Meningomyelocele, Spina bifida, or Anencephaly): No Congenital heart defect: No Down syndrome: No Noble-Sachs (Ashkenazi Christian, Cajun, Cambodian [place]): No Chris disease (Ashkenazi Christian): No Familial dysautonomia (Ashkenazi Christian): No Sickle cell disease or trait (): No Hemophilia or other blood disorders: No Muscular dystrophy: No Cystic fibrosis: No Star's chorea: No Intellectual disability and/or autism: No Other inherited genetic or chromosomal disorder: No Maternal metabolic disorder (eg. Type 1 diabetes, PKU): No Patient or baby's father had child with defects not listed above: No Recurrent loss, or a stillbirth: Yes (Comment: maternal stillbirth) Medications (including supplements, vitamins, herbs, or OTC drugs)/illicit/recreational drugs/alcohol since last menstrual period: No CURRENT MEDICATIONS: Current Outpatient Medications Medication Sig vit 28/iron fum/folic (MULTIVITAMIN FOLIC ACID 1 MG) Take 1 tablet by mouth once daily. No current facility-administered medications for this visit. Medications have been reviewed by me and are current to the best of my knowledge and ability. ALLERGIES: Patient has no known allergies. OBJECTIVE: Ht 1.713 m (5' 7.44) Wt 123.2 kg (271 lb 9.6 oz) LMP 06/22/2024 (Exact Date) Comment: Has only had three periods since July 2023 BMI 41.98 kg/m ,URINE (no units) Date Value 05/25/2021 Negative ASSESSMENT/PLAN: No diagnosis found. EDUCATION/PATIENT INSTRUCTIONS - Advised patient to start/continue vitamin. - Discussed risk of using alcohol, tobacco, other drugs in . - Discussed healthy lifestyle in . - Provided copy of Beginnings book and book inserts, discussed ylxt-hru-bouujts medications, and follow up. - Encouraged patient to call clinic at [phone] with any vaginal bleeding, fluid leaking from vagina, severe abdominal pain, nausea with severe vomiting, fever higher than 100.4F, painful urination, headache not relieved by Tylenol, or other concerns - labs completed with today's visit. - Patient informed to schedule 1st trimester dating ultrasound between 7-10 weeks. - Initial OB appointment with FP/OB scheduled. PHQ-9, and COVID-19 vaccine discussion to be completed at this visit. Future Appointments Date Time Provider Department Center 09/17/2024 1:00 PM NFLD ULTRASOUND NFMI [facility] 09/17/2024 2:25 PM Zita Newton MD NFLDFP [facility] Dianelys Ayala RN .................... 09/02/2024 2:11 PM R DOUGHNUT R DOUGHNUT Last Filed Vital Signs Vital Sign Reading Time Taken Comments Blood Pressure 131/83 12/24/2024 3:37 PM CDT Pulse 88 12/24/2024 3:37 PM CDT Temperature 36.4 C (97.6 F) 03/31/2021 11:20 AM CDT Respiratory Rate - - Oxygen Saturation 99% 12/24/2024 3:37 PM CDT Inhaled Oxygen Concentration - - Weight 126 kg (277 lb 12.8 oz) 12/24/2024 3:37 P M CDT Height 171.3 cm (5' 7.44) 09/02/2024 1:58 PM CS T Body Mass Index 42.94 09/02/2024 1:58 PM BAKER DOUGHNUT Plan of Treatment Upcoming Encounters Date Type Department Care Team (Late st Contact Info) Description 01/21/2025 1:45 PM CDT Ancillary Procedure [facility] [address] [address] 01/21/2025 2:50 PM CDT OB Encounter [facility] [place] [address] Zita Newton MD [facility] [address] 02/04/2025 1:45 PM CDT Ancillary Procedure [facility] [address] [address] 02/04/2025 2:50 PM CDT OB Encounter [facility] [address] [address] Zita Newton MD [address] [facility] [address] 02/11/2025 1:45 PM CDT Ancillary Procedure [facility] [address] 02/11/2025 2:50 PM CDT OB Encounter [facility] [address] Zita Newton [place] [address] 02/18/2025 1:45 PM CDT Ancillary Procedure [facility] [place] [facility] [place] [address] 02/18/2025 2:50 PM CDT OB Encounter [place] [address] [facility] [address] Zita Newton MD [address] [facility] [address] 02/25/2025 1:45 PM CDT Ancillary Procedure [facility] [address] [facility] [address] 02/25/2025 2:50 PM CDT OB Encounter [facility] [address] [place] [address] Zita Newton MD [address] [place] [address] 03/04/2025 1:45 PM CDT Ancillary Procedure [facility] [address] [place] [address] 03/04/2025 2:50 PM CDT OB Encounter [facility] [address] [place] [address] Zita Newton MD [address] [facility] [address] 03/11/2025 1:45 PM CDT Ancillary Procedure [facility] [address] [place] [address] 03/11/2025 2:50 PM CDT OB Encounter [facility] [address] [place] [address] Zita Newton MD [address] [place] [address] 03/18/2025 1:00 PM CDT Ancillary Procedure [facility] [address] [place] [address] 03/25/2025 1:45 PM CDT Ancillary Procedure [facility] [address] [place] [address] 03/25/2025 2:50 PM CDT OB Encounter [facility] [address] [facility] [address] Zita Newotn MD [address] [place] [address] 04/01/2025 1:45 PM CDT Ancillary Procedure [facility] [address] [facility] [address] 04/01/2025 2:50 PM CDT OB Encounter [facility] [address] [facility] [address] Zita Newton MD [address] [facility] [address] 04/08/2025 1:45 PM CDT Ancillary Procedure [facility] [address] [place] [address] 04/08/2025 2:50 PM CDT OB Encounter [facility] [facility] [address] Zita Newton MD [address] [facility] [address] Health Maintenance Due Date Last Done Comments COVID-19 vaccine series ( season) 2024 12/27/2020, 12/27/2020, 12/03/2020, Additional history exists BMI (ht and wt on same day) for age 18+ 09/02/2025 09/02/2024, 06/09/2024, 07/27/2023, Additional history exists Depression screening for age 12+ 09/17/2025 09/17/2024, 05/14/2020 Pap test for age 21-65 06/09/2029 06/09/2024, 2019 Tetanus booster 01/05/2031 01/05/2021, 04/04/2007 Hepatitis B series for 19+ Completed 11/24, 1996, 1996, Additional history exists Tdap Completed 01/05/2021, 04/04/2007 Influenza Vaccine Completed 06/09/2024, , 05/13/2021, Additional history exists HIV for age 15-65 Completed 09/02/2024, , 12/16/2019, Additional history exists Hepatitis C screening for age 18-79 Completed 09/02/2024, 03/10/2021, 12/16/2019 Pneumococcal series for age 6-49 Aged Out No longer eligible based on patient's age to complete this topic RSV vaccine for adults or (No Doses Required) Completed Procedures Procedure Name Priority Date/Time Associated Diagnosis Comments US ECHOCARDIOGRAM Routine 12/01/2024 3:02 PM CDT High-risk in second trimester (HC) US OB DETAIL ANATOMY SINGLE Routine 12/01/2024 3:02 PM CDT High-risk in second trimester (HC) URINALYSIS MACROSCOPIC - [facility] ONLY POC DIP ([facility]) Routine 11/26/2024 4:00 PM CDT Other microscopic hematuria URINALYSIS MICROSCOPIC Routine 3:58 PM CDT Other microscopic hematuria URINE CULTURE Routine 11/26/2024 3:58 PM CDT Other microscopic hematuria ANTI HIV 1/2 Routine 09/02/2024 2:38 PM BAKER DOUGHNUT Encounter for supervision of other normal in first trimester (HC) ANTI HCV Routine 09/02/2024 2:38 PM BAKER DOUGHNUT Encounter for supervision of other normal in first trimester (HC) CYBER OPERATOR THIN PREP PAP AND HPV DNA - AGE 25 AND OVER ([facility]) Routine 06/09/2024 2:48 PM CDT Screening for cervical cancer from Last 3 Months or Most Recently Relevant to Health Maintenance Results * Echocardiogram (CPT 01449) (12/01/2024 3:02 PM CDT) Anatomical Region Laterality Modality HEART Ultrasound 12/01/2024 2:57 PM CDT Narrative 12/01/2024 3:24 PM CDT Normal Echocardiogram COMMENT The results of the echocardiogram were discussed with the parents. echocardiograms can not rule out some ventricular septal defects, persistent patent ductus arteriosus, atrial septal defect, some abnormalities of systemic and pulmonary venous return, coarctation of the aorta, and minor valve abnormalities. Services Provided: Procedures Code US ECHOCARDIOGRAM 78635.0 US DOPPLER COLOR FLOW VELOCITY MAP 19786.0 Procedure Note Enrique French Teodoro, DO - 12/01/2024 Normal Echocardiogram COMMENT The results of the echocardiogram were discussed with the parents. echocardiograms can not rule out some ventricular septal defects, persistent patentductus arteriosus, atrial septal defect, some abnormalities of systemic and pulmonary venous return,coarctation of the aorta, and minor valve abnormalities. Services Provided: ProceduresCode US [id number] US DOPPLER COLOR FLOW VELOCITY [id number] us Zita Newton MD US Final R esult * Detailed Anatomy Single (CPT 55666) (12/01/2024 3:02 PM CDT) Anatomical Region Laterality Modality , 2or 3 TRIMESTER Ultrasound 12/01/2024 2:25 PM CDT Narrative 12/01/2024 3:23 PM CDT Referred By: ZITA NEWTON MD Indications Code 20 weeks gestation of Z3A.20 Morbid Obesity - BMI >40 2020 Term P LTCS- breech presentation 2019 27w1d IUFD, POC- normal female karyotype Declined serum screening Meds: bASA IMPRESSION: Intrauterine at 20w 5d. presentation is Transverse, head to maternal right. EFW 481 grams, percentile: > 97. Growth parameters and estimated weight are appropriate for gestational age. No major structural anomalies identified. No markers for aneuploidy identified. Normal Deepest Vertical Pocket of amniotic fluid: 4.75 cm. Placental location: Posterior. Placental edge dist from international first officer os=5.99 The transabdominal cervical length is 3.3 cm. RECOMMENDATIONS: -Return to primary provider for continued care. -Consider delivery at 39 weeks due pt prior history of IUFD. -No medication changes are indicated. -Recommend weekly surveillance starting at 28-32 weeks. -Recommend serial growth assessments at 28 and 34 weeks -The patient was directed to schedule with OB provider as discussed at their visit today. COMMENT: Present findings are reassuring. The patient was seen by the Perinatologist today. The previous ultrasound and the records were reviewed. The results of today's ultrasound were communicated to the patient. Discussed above recommendations. Questions answered. Government regulations related to the Cures act require that this note be released to the patient immediately, sometimes before the referring provider has been contacted. A portion of the information was presented verbally to the patient. The remainder is submitted as background for the referring provider, to be discussed as needed. Medical Decision Making: Moderate Level 87407 Moderate number/complexity of problems including an undiagnosed new problem with uncertain prognosis or an acute illness with systemic symptoms for mother or fetus, etc. Moderate amount and/or complexity of Data reviewed and analyzed including review of prior ultrasound, recommending another ultrasound, and review of prior external notes, etc. Moderate risk of morbidity or mortality related to underlying conditions Services Provided: Procedures Code DETAIL ANATOMY & MPP ECHO 80117.0 Procedure Note French Nunez, DO - 12/01/2024 Referred By: ZITA NEWTON MD IndicationsCode 20 weeks gestation of bkniclydmM2K.20 Morbid Obesity - BMI >40 2020 Term P LTCS- breech presentation 2019 27w1d IUFD, POC- normal female karyotype Declined serum screening Meds: bASA IMPRESSION: Intrauterine at 20w 5d. presentation is Transverse, head to maternal right. EFW 481 grams, percentile: > 97. Growth parameters and estimated weight are appropriate forgestational age. No major structural anomalies identified. No markers for aneuploidy identified. Normal Deepest Vertical Pocket of amniotic fluid: 4.75 cm. Placental location: Posterior. Placental edge dist from international first officer os=5.99 The transabdominal cervical length is 3.3 cm. RECOMMENDATIONS: -Return to primary provider for continued care. -Consider delivery at 39 weeks due pt prior history of IUFD. -No medication changes are indicated. -Recommend weekly surveillance starting at 28-32 weeks. -Recommend serial growth assessments at 28 and 34 weeks -The patient was directed to schedule with OB provider as discussed attheir visit today. COMMENT: Present findings are reassuring. The patient was seen by thePerinatologist today. The previous ultrasound and the records were reviewed. The resultsof today's ultrasound were communicated to the patient. Discussed above recommendations.Questions answered. Government regulations related to the Cures act require thatthis note be released to the patient immediately, sometimes before the referring provider hasbeen contacted. A portion of the information was presented verbally to the patient. Theremainder is submitted as background for the referring provider, to be discussed as needed. Medical Decision Making: Moderate Level 78957 Moderate number/complexity of problems including an undiagnosed newproblem with uncertain prognosis or an acute illness with systemic symptoms for mother or fetus,etc. Moderate amount and/or complexity of Data reviewed and analyzedincluding review of prior ultrasound, recommending another ultrasound, and review of prior externalnotes, etc. Moderate risk of morbidity or mortality related to underlyingconditions Services Provided: ProceduresCode DETAIL ANATOMY & MPP [id number] us Zita Newton MD US Final R esult * (ABNORMAL) POCT Urinalysis Dipstick Only [[id number]] (11/26/2024 4:00 PM CDT) PH 6.5 5.0 - 8.0 [facility] SPECIFIC GRAVITY 1.015 1.001 - 1.035 [facility] GLUCOSE NEGATIVE NEGATIVE [facility] BILIRUBIN NEGATIVE NEGATIVE [facility] KETONES NEGATIVE NEGATIVE [facility] OCCULT BLOOD 1+(A) NEGATIVE [facility] PROTEIN NEGATIVE NEGATIVE [facility] NITRITE NEGATIVE NEGATIVE [facility] LEUKOCYTE ESTERASE 2+(A) NEGATIVE [facility] Urine URINE SPECIMEN / Unknown 11/26/2024 4:00 PM CDT 11/26/2024 4:00 PM CDT Zita Newton MD URINE Final R esult [facility] [address] [place] [address], [place] [phone] [facility] [address] [place] [address] * (ABNORMAL) URINALYSIS MICROSCOPIC [23149.1] - routine (11/26/2024 3:58 PM CDT) RBC 6-10(A) 0-2, None Seen /HPF 11/26/2024 11:11 PM CDT [facility] WBC >100(A) 0-2, 3-5, None Seen /HPF 11/26/2024 11:11 PM CDT [facility] BACTERIA Many(A) None Seen, Rare, Few Bacteria/ HPF 11/26/2024 11:11 PM CDT [facility] EPITHELIAL CELLS None Seen None Seen, Few Epi/HPF 11/26/2024 11:11 PM CDT [facility] HYALINE CASTS 0-2 0-2, 3-5 /LPF 11/26/2024 11:11 PM CDT [facility] Urine URINE SPECIMEN / Unknown Non-Blood / Unknown 11/26/2024 3:58 PM CDT 11/26/2024 3:58 PM CDT Zita Newton MD URINE Final R esult [facility] [address] [place] [address], * (ABNORMAL) URINE CULTURE [11708.2] (11/26/2024 3:58 PM CDT) CULTURE RESULT(A) 11/29/2024 7:22 AM CDT [facility] CULTURE >100,000 CFU/mL Escherichia coli 11/29/2024 7:22 AM CDT [facility] Urine URINE SPECIMEN / Unknown Non-Blood / Unknown 11/26/2024 3:58 PM CDT 11/26/2024 3:58 PM CDT Narrative Organism Antibiotic Method Susceptibility Escherichia coli TRIMETHOPRIM/SULF <=08/31: S Escherichia coli AMPICILLIN 4: S Escherichia coli CEFAZOLIN 2: S Escherichia coli CEFAZOLIN-UC 2: S Comment:Cefazolin-UC interpretations are for therapy of uncomplicated UTIs due to E.coli, K.pneumoniae, or P.mirablis. Cefazolin breakpoint is used as a surrogate to predict results for the oral agents - cefdinir, cefuroxime, and cephalexin, when used for therapy of uncomplicated UTIs due to E coli, K, pneumoniae, and P. mirabilis. The FDA recommends cefadroxil susceptibility can be deduced from cefazolin. Escherichia coli GENTAMICIN <=1: S Escherichia coli CEFTRIAXONE <=0.25: S Escherichia coli CEFTAZIDIME <=0.5: S Escherichia coli LEVOFLOXACIN >=8: R Escherichia coli CIPROFLOXACIN >=4: R Escherichia coli PIPERACILLIN/TAZO <=4: S Escherichia coli AMPICILLIN/SULBACTAM <=2: S Escherichia coli CEFEPIME <=0.12: S Escherichia coli MEROPENEM <=0.25: S Escherichia coli NITROFURANTOIN <=16: S Zita Newton MD MICROBIOLOGY Final R esult [facility] [address] [place] [address], * ANTI HCV (09/02/2024 2:38 PM BAKER DOUGHNUT) HEPATITIS C ANTIBODY NON-REACTI VE NON-REACT MANN [employer] Comment: HCV antibody was non-reactive. There is no laboratory evidence of HCV infection. In most cases, no further action is required. However, if recent HCV exposure is suspected, a test for HCV RNA (test code 68471) is suggested. For additional information please refer to http://education.Wukong.com.Pivotshare/faq/YNX97o8 (This link is being provided for informational/ educational purposes only.) Blood BLOOD SPECIMEN / Unknown 09/02/2024 2:38 PM BAKER DOUGHNUT 09/02/2024 2:39 PM BAKER DOUGHNUT Zita Newton MD SEND OUTS Final R esult [employer] [facility] [address] [facility] [place] [address], [employer] [facility] [facility] [address] [place] [address] * ANTI HIV 1/2 (09/02/2024 2:38 PM BAKER DOUGHNUT) [facility] HIV AG/AB, 4TH GEN NON-REACT MANN NON-REACT MANN [employer] [place] Comment: HIV-1 antigen and HIV-1/HIV-2 antibodies were not detected. There is no laboratory evidence of HIV infection. PLEASE NOTE: This information has been disclosed to you from records whose confidentiality may be protected by state law. If your state requires such protection, then the state law prohibits you from making any further disclosure of the information without the specific written consent of the person to whom it pertains, or as otherwise permitted by law. A general authorization for the release of medical or other information is NOT sufficient for this purpose. For additional information please refer to http://education.Wukong.com.Pivotshare/faq/XWP069 (This link is being provided for informational/ educational purposes only.) The performance of this assay has not been clinically validated in patients less than 2 years old. Blood BLOOD SPECIMEN / Unknown 09/02/2024 2:38 PM BAKER DOUGHNUT 09/02/2024 2:39 PM BAKER DOUGHNUT us Zita Newton MD SEND OUTS Final R esult [employer] [facility] [address] [place] [address], [place] [phone] [employer] [address] [place] [address] * CYBER OPERATOR THIN PREP PAP AND HPV DNA REFLEX HPV 16/18 - AGE 25 AND OVER (db4objects) [[id number]] (06/09/2024 2:48 PM CDT) CLINICAL INFORMATION [facility] Comment:None given LMP [facility] Comment:05/23/2024 PREV. PAP [facility] Comment:2020, NIL PREV. BX [facility] Comment:NO SOURCE CYBER OPERATOR [facility] Comment:Cervix STATEMENT OF ADEQUACY [facility] Comment: Satisfactory for evaluation. Endocervical/transformation zone component present. INTERPRETATION/RESU LT [facility] [employer] [facility] Comment: Cytology Results: Negative for intraepithelial lesion or malignancy. COMMENT [facility] [employer] [facility] Comment: This Pap test has been evaluated with computer assisted technology. [employer] CRE[employer] SUPERVISOR [facility] Comment: ESL, CT(ASCP) CT Screening Location: [address] [address] THINPREP TIS PAP ALWAYS MESSAGE [facility] [employer] [facility] Comment: EXPLANATORY NOTE: The Pap is a screening test for cervical cancer. It is not a diagnostic test and is subject to false negative and false positive results. It is most reliable when a satisfactory sample, regularly obtained, is submitted with relevant clinical findings and history, and when the Pap result is evaluated along with historic and current clinical information. HPV HIGH RISK Not Detected NOT DETECTED [facility] Comment: Not Detected High Risk HPV types (16,18,31,33,35,39,45,51,52, 56,58,59,66,68) were not detected. Other HPV types which cause anogenital lesions may be present. The significance of the other types of HPV in malignant processes has not been established. Methodology: Real Time PCR Other (Cervical) 06/09/2024 2:48 PM CDT 06/10/2024 4:01 AM CDT us Zita Newton MD PATHOLOGY/CYTOLOGY Sosa l Result [facility] [address] [place] [address], [facility] [address] [place] [address] from Last 3 Months or Most Recently Relevant to Health Maintenance Insurance [employer] OF [employer]-[place]-[employer] Care Teams Senior Telecommunications Technician Relationship Specialty Start Date End Date Zita Newton MD [address] [place] [address] PCP - General Family Practice 07/03/23
[2025-01-18 18:37] LABS: Magnesium* 1.7 mg/dL (1.5-2.6)
[2025-01-18] MEDS: LIDOCAINE 1% 5 ml (pf) 5 ML VIAL 2.1 ML IM (19:03)
[2025-01-18] MEDS: cefTRIAXone 1 GM VIAL IM (19:03)
--- NOTE | 2025-01-18 19:03 | PC.OBNST ---
NST Note NST Note Start: 01/18/25 19:00 Freq: ONCE Status: Active Protocol: Document 01/18/25 19:00 DENOMINATIONAL (Rec: 01/18/25 19:03 DENOMINATIONAL No Response) NST Note 4 Para (# of births) 1 EDC 04/15/25 Gestational Age In 27 Weeks & 4 Days Weeks & Days Patient Presented Other with Complaint(s) of Other Complaints Monitoring FHR in ED, patient in for a UTI Reactive Yes Appropriate for Yes Gestational Age NAVJOT Lui Date 01/18/25 Reactive Yes Appropriate for Yes Gestational Age NAVJOT Tovar Date 01/18/25 OB NST charge Yes Complete NST Note Yes via Write Note The provider's electronic signature indicates the NST is reactive/appropriate for gestational age. *Note to provider: If an addendum is required, open the patient's chart and click on the note under the Nurse/Allied Health tab.
== END 2025-01-18 19:12 | disposition home or self-care (01) ==
PROVIDERS: Family Medicine; Emergency Provider Internal Medicine; PCP Family Medicine
DX: N30.91 Cystitis, unspecified with hematuria (principal); O16.3 Unspecified maternal hypertension, third trimester
CPT/HCPCS: 36415; 59025; 80053; 81001; 81003; 83735; 85025; 87086; 96365; 99283; 99284; J0696

== ENCOUNTER 2025-03-25 09:36 | Inpatient (IN) | payer BC, SELFPAY ==
[2025-03-25] VITALS (12 sets, daily range): BP systolic 105–135; BP diastolic 62–87; PULSE 75–94; RESP 17; TEMP 36.8; O2SAT 98; BMI 43.4
[2025-03-25 10:28] LABS: Hematocrit 37.6 % (33.0-51.0); Hemoglobin* 12.6 gm/dL (12.0-16.0); Immature Granulocytes Abs Auto 0.02 K/uL (0.00-0.30); Immature Granulocytes Pct Auto 0.2 %; Mean Corpuscular HGB Conc 34 gm/dL (32-36); Mean Corpuscular Hemoglobin 29 pg (26-34); Mean Corpuscular Volume 85 fL (80-100); RDW Coefficient of Variation % 13.3 % (11.5-15.5); Red Blood Count 4.41 m/uL (4.00-5.20); White Blood Count* 9.63 K/uL (4.50-11.00)
[2025-03-25 10:51] LABS: Lymphocytes Absolute Auto 1.90 K/uL (0.90-2.90); Slide Review Reflex No
[2025-03-25 11:37] LABS: Alanine Aminotransferase* 14 U/L (4-35); Aspartate Amino Transferase* 27 U/L (12-35); Creatinine* 0.6 mg/dL (0.5-1.5); Est. Creatinine Clearance* 134.54; Estimated Glomerular Filt Rate 125 ml/min
[2025-03-25] MEDS: OXYTOCIN 30 unit/500 ML in NS 30 UNIT/500 ML BAG IVPB (12:39)
[2025-03-25] MEDS: LACTATED RINGERS 1000 ML 1,000 ML 125 ML IV ×2 (12:40→19:36)
--- NOTE | 2025-03-25 12:47 | PM.OBLDTN ---
OB - Triage/Final Diagnosis Visit Information Narrative: Lluvia is a 30yo at 37w0d GA seen in triage for planned ECV for breech malpresentation. 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 On arrival, a transabdominal ultrasound was performed patient is noted to be cephalic. As such, ECV was cancelled. No regular/painful uterine contractions, vaginal bleeding or leaking of fluid. Endorses active movement. With regard to her chronic hypertension on medicines, she is normotensive on presentation. Preeclampsia labs were performed, noted to be within normal limits. She denies headache, vision changes or right upper quadrant pain. Patient was counseled on her options, including the option to proceed with medically indicated delivery in the setting of chronic hypertension on medicines at 37 weeks. Discussed ACOG recommendation for medically indicated delivery in this context between 37w0d and 39w6d GA. Cervical exam was performed, noted to be closed with high station. Explained that while patient can choose to proceed with induction, this is not absolutely necessary today given her adequate blood pressure control, normal labs and the recommended range for delivery per ACOG. Discussed risks of expectant management could include superimposed preeclampsia, worsening maternal/ condition, conversion back to non-cephalic presentation. If pursued, explained next steps would include testing 1-2x weekly, weekly preeclampsia labs and provider visit. I would still recommend she be delivered prior to 39w6d GA consistent with ACOG guidelines. It would also be within the standard of care to proceed with IOL today given cHTN on meds. I did explain that induction has been associated with a decreased likelihood of successful TOLAC. Her baseline likelihood of success is 26.8% by my calculation, but admittedly this does not take into account the she did have in the context of an IUFD. Explained since her cervix is closed and a TOLAC, would have to start with cervical ripening with Pitocin in order to even accommodate a Cook catheter. Explained my preference is office to avoid Cook catheter in the setting of variable presentation, that said our options are very limited in the setting of a TOLAC. Ultimately, this plan would be definitively manage by her [facility] provider. After complete counseling, patient consider her options further with her family. She has elected to proceed with induction of labor today for cHTN on meds. Nursing to notify her [facility] provider, Dr. Newton, for management. Evaluation Laboratory results: Laboratory Tests 03/25/25 03/25/25 Range/Units Unknown 10:22 WBC 9.63 (4.50-11.00) K/uL RBC 4.41 (4.00-5.20) m/uL Hgb 12.6 (12.0-16.0) gm/dL Hct 37.6 (33.0-51.0) % MCV 85 (80-100) fL MCH 29 (26-34) pg MCHC 34 (32-36) gm/dL RDW Coeff of Ananya 13.3 (11.5-15.5) % Plt Count 266 (140-440) K/uL Neut % (Auto) 72.5 H (42.0-72.0) % Lymph % (Auto) 19.5 L (20-44) % Mathews % (Auto) 6.7 (0.0-11.0) % Eos % (Auto) 0.8 (0.0-7.0) % Baso % (Auto) 0.3 (0.0-3.0) % Neut # (Auto) 7.00 (1.7-7.0) K/uL Lymph # (Auto) 1.90 (0.90-2.90) K/uL Mathews # (Auto) 0.60 (0.00-0.90) K/UL Eos # (Auto) 0.08 (0.00-0.50) K/uL Baso # (Auto) 0.03 (0.00-0.30) K/uL Abs Immat Gran (auto) 0.02 (0.00-0.30) K/uL Imm/Tot Granulo (auto) 0.2 % Creatinine 0.6 (0.5-1.5) mg/dL Estimated Creat Clear 134.54 Estimated GFR 125 ml/min AST 27 (12-35) U/L ALT 14 (4-35) U/L RPR Screen Pending Group B Strep DNA Pending Blood Type O Positive Antibody Screen NEGATIVE Vital signs: Vital Signs - 24 hr 03/25/25 09:40 03/25/25 09:43 03/25/25 12:35 Pulse Rate 83 84 Blood Pressure 135/87 135/81 Pulse Oximetry 98
--- NOTE | 2025-03-25 18:07 | PM.OBHPLI ---
OB - H&P: HPI Labor/Induction History of Present Illness Date Seen: 03/25/25 Chief Complaint: The patient is a 30 year old 3 para 1101 at 37 weeks gestation by 1st trimester US, who presented for ECV for breech presentation and desire for TOLAC. Upon arrival fetus in vertex presentation. Due to chronic hypertension on medication, patient offered induction today which she agrees. Chief complaint: Maternity Narrative: Lluvia Medley is a 30 year old at 37 weeks by 10 week US. She initially presented for ECV prior to tOLAC, with plan for if not successful. Fortunately, baby vertex on arrival and option for induction today vs watchful waiting for 38-39 weeks offered. She elected for induction while fetus still vertex. She has chronic HTN on aspirin and well controlled with labetalol. Pitocin started this afternoon, she is not feeling contractions, no LOF. History of Present Dating criteria: based on 1st trimester US only care: none Ultrasounds: normal 1st trimester US and normal mid trimester US Abnormal ultrasound findings: EFW at 34 weeks 3015 g (>98%) complications: chronic hypertension Labs Blood type: O (+) positive Rubella: immune RPR/VDLR: nonreactive GBS status: unknown HBsAG: negative Review of Systems Status of ROS: Reports: 6 or more systems reviewed and unremarkable except as noted in History and below Meds Home Medications and Allergies Home Medications ?Medication ?Instructions ?Recorded ?Confirmed ?Type aspirin 81 mg tablet,delayed 81 mg PO QDAY 12/22/24 03/25/25 History release (Adult Aspirin Regimen) vits no.126-ferrous fum tab PO QDAY 12/22/24 03/19/25 History 28 mg iron-folic acid 800 mcg tablet (Classic ) labetalol 100 mg tablet mg PO BID 03/19/25 03/19/25 History Allergies Allergy/AdvReac Type Severity Reaction Status Date / Time No Known Drug Allergies Allergy Verified 03/19/25 13:10 OB - H&P: Exam Physical Exam: Vital signs: Pulse BP Pulse Ox 81 126/75 98 03/25/25 17:56 03/25/25 17:56 03/25/25 09:40 Constitutional: Constitutional: no acute distress Routine HEENT Exam: Head: Present atraumatic and normal inspection Eye: Present EOMI and normal appearance ENT: Present mucous membranes moist Routine Neck Exam: Neck: Present full ROM Routine Respiratory Exam: Respiratory: Present CTA bilaterally Routine Cardiovascular Exam: Cardiovascular: RRR Detailed Labor and Delivery Exam: Dilation (cm): 1 Effacement (%): 40 Cervix position: mid Consistency: soft Cervical ripeness score: 5 Contraction frequency (min): 8 Contraction intensity: Mild Fetus (Single): Station: -3 Amniotic Membrane Status: intact Heart Rate Baseline: 130 Monitor Accelerations: Present Monitor Decelerations: None Specialist Field Engineer Variability: Moderate (6-25) Routine Skin Exam: Present intact Routine Neurological Exam: Present alert, oriented X3 and CN II-XII intact Routine Psychiatric Exam: Present normal affect and normal thought process OB - Results Labs Labs: Short CBC 03/25/25 Range/Units 10:22 WBC 9.63 (4.50-11.00) K/uL Hgb 12.6 (12.0-16.0) gm/dL Hct 37.6 (33.0-51.0) % Plt Count 266 (140-440) K/uL BMP 03/25/25 10:22 Creatinine 0.6 Liver Function 03/25/25 Range/Units 10:22 AST 27 (12-35) U/L ALT 14 (4-35) U/L OB - Problem Based A/P Additional Plan (1) Desires (vaginal after ) trial: Status: Acute (2) Morbid obesity with body mass index (BMI) of 40.0 to 44.9 in adult: Status: Acute (3) History of delivery, currently : Status: Acute (4) Chronic hypertension: Status: Acute Plan Induction for chronic HTN on medication, preeclampsia labs negative and BP well controlled. Attempted cook catheter placement x2, without success. Will continue low dose pitocin overnight, as she has already made some cervical change with this. GBS status is unknown, PCR pending. Continue labetalol.
[2025-03-25] MEDS: LABETALOL HCL 100 MG TABLET PO (21:29)
[2025-03-25] MEDS: ONDANSETRON 2 MG/ML inj 4 MG IV (22:46)
[2025-03-26] VITALS (36 sets, daily range): BP systolic 99–139; BP diastolic 51–82; PULSE 69–101; RESP 16–24; TEMP 36.5–37; O2SAT 92–100
[2025-03-26] MEDS: LACTATED RINGERS 1000 ML 1,000 ML 125 ML IV ×3 (03:32→19:23)
--- NOTE | 2025-03-26 07:30 | P.OBPN_ITS ---
Subjective Date Seen: 03/26/25 Narrative: Lluvia is a at 37+1 weeks here for IOL for chronic HTN. She was started on low dose pitocin yesterday afternoon and after failed cook placement last evening, this continued overnight. She is not feeling much pain with contractions and had some sleep overnight. Objective Vital Signs: Last Vital Signs Temp 98.2 F 03/26/25 06:35 Pulse 75 03/26/25 07:27 Resp 17 03/26/25 06:35 BP 138/82 03/26/25 07:27 Pulse Ox 100 03/26/25 07:28 Pelvic Exam Dilation (cm): 2 Effacement (%): 40 Station: -3 Contractions Monitor mode: External Contraction pattern: Irregular Contraction intensity: Mild Pitocin Rate (mU/min): 12 Assessment Assessment: induction ongoing Station: -3 Amniotic Membrane Status: AROM (clear fluid) Status: Category l Heart Rate Baseline: 130 Longterm Variability: Moderate (6-25) Monitor Accelerations: Present Monitor Decelerations: None Plan Plan: IOL for chronic HTN. Patient underwent AROM with clear fluid this morning. Will continue pitocin titration, now at regular titration. Continue labetalol for HTN. Epidural per patient request.
--- NOTE | 2025-03-26 09:23 | PM.OBPNL ---
Subjective Date Seen: 03/26/25 Narrative: Called to evaluate patient due to loss of FHTs on external monitoring, they were able to find them, but at upper right uterus. Pitocin stopped. Bedside US confirms vertex. Pitocin restarted at 1/2 dose. Objective Vital Signs: Last Vital Signs Temp 98.3 F 03/26/25 08:33 Pulse 78 03/26/25 09:03 Resp 16 03/26/25 08:04 BP 132/76 03/26/25 09:03 Pulse Ox 98 03/26/25 09:03 Pelvic Exam Dilation (cm): 2 Effacement (%): 40 Station: -3 Contractions Monitor mode: External Contraction pattern: Irregular Contraction intensity: Mild Pitocin Rate (mU/min): 12 Assessment Station: -3 Amniotic Membrane Status: AROM (clear fluid) Status: Category l Heart Rate Baseline: 140 Monitor Accelerations: Present Monitor Decelerations: None Plan Plan: Continue pitocin titration per protocol. Continue labetalol for chronic HTN. Analgesia per patient request.
[2025-03-26] MEDS: LABETALOL HCL 100 MG TABLET PO ×2 (09:29→21:00)
[2025-03-26 12:05] LABS: Strep B DNA Probe Negative (Negative)
[2025-03-26 12:08] LABS: Strep B Susceptibility Needed? No
--- NOTE | 2025-03-26 17:24 | P.OBPN_ITS ---
Subjective Date Seen: 03/26/25 Narrative: Lluvia is a 30 yo at 37+1 weeks here for IOL for chronic HTN. Pitocin titration overnight and throughout the day today since she is a TOLAC, she is feeling contractions now, although reports they are not particularly painful. Due to difficulty tracing , FSE placed in early afternoon and IUPC just placed this evening. Blood pressure remains well controlled. Objective Vital Signs: Last Vital Signs Temp 98.1 F 03/26/25 16:46 Pulse 78 03/26/25 16:46 Resp 24 03/26/25 16:46 BP 99/59 L 03/26/25 16:46 Pulse Ox 98 03/26/25 16:45 Pelvic Exam Dilation (cm): 25 Effacement (%): 70 Station: -3 Contractions Monitor mode: External Contraction pattern: Irregular Contraction intensity: Mild Pitocin Rate (mU/min): 19 Assessment Station: -3 Amniotic Membrane Status: AROM (clear fluid) Status: Category l Heart Rate Baseline: 120 Honeycomb Blanket Maker Variability: Moderate (6-25) Monitor Accelerations: Present Monitor Decelerations: Variable Plan Plan: Continue pitocin titration as tolerated to get adequate contractions. Continue labetalol for BP management. Patient undecided on labor analgesia. If difficulty getting adequate labor or lack of cervical change despite ongoing pitocin titration, will consult facility administrator.
[2025-03-26] MEDS: ONDANSETRON 2 MG/ML inj 4 MG IV (19:19)
--- NOTE | 2025-03-26 19:44 | P.OBPN_ITS ---
Subjective Date Seen: 03/26/25 Narrative: Lluvia is a at 37+1 week here for IOL for chronic HTN, well controlled on labetalol. She is now feeling more pain and vaginal pressure with contractions. FHTs with intermittent, repetitive variable decelerations. Will then have periods of category 1 tracing. Has had numerous position changes. Currently comfortable with category 1 tracing on left lateral. Objective Vital Signs: Last Vital Signs Temp 98.4 F 03/26/25 18:09 Pulse 90 03/26/25 19:42 Resp 20 03/26/25 18:09 BP 111/58 L 03/26/25 19:42 Pulse Ox 98 03/26/25 18:09 Pelvic Exam Dilation (cm): 6 Effacement (%): 80 Station: -2 Contractions Monitor mode: External Contraction pattern: Regular Contraction intensity: Strong/Firm Pitocin Rate (mU/min): 20 Assessment Assessment: active labor Station: -2 Amniotic Membrane Status: AROM (clear fluid) Status: Category l Heart Rate Baseline: 140 Wind Energy Technician Variability: Moderate (6-25) Monitor Accelerations: Present Monitor Decelerations: Variable Plan Plan: IOL for chronic HTN. On labetalol, well controlled. TOLAC, now in active labor. Will continue pitocin per protocol as long as FHTs tolerate. OB and OR team called into hospital until delivery.
--- NOTE | 2025-03-26 23:50 | P.OBCN_ITS ---
OB - CN: HPI Date of Consult Date Seen: 03/26/25 Patient: Patricia Patient Consult date: 03/27/25 Requesting Physician: Precious Newton MD Primary Care Provider: Precious Newton MD Consult Narrative Reason for consult: arrest of labor and nonreassuring FHTs Narrative: The patient is a 30 year old G 4 P 1101 at 37 1/7 weeks gestation that was admitted to the Center on 03/25/25 for IOL, attempt at VTOLAC. Patient admitted yesterday after admission for possible ECV, found to be vertex. Due to history of chronic hypertension on medication, history of IUFD and current vertex presentation patient desired to proceed with IOL. Started on low dose Oxytocin overnight, AROM this am and continued to be on IV Oxytocin throughout the day. IUPC placed this afternoon and IV xytocin titrated appropriately with episodes of adequate MVUs. She was found 6cm at around 7:30 pm and OR team was called to be in house. At around 10pm patient started to feel lots of pressure and was checked by nurses and found to be 9cm. Dr. Newton was called in and evaluated patient, found to have a full bladder which was emptied and she had 2L of urine in her bladder. After this, cervix was checked and it was found 6cm dilated, station -2, -3. NST has also been showing episodes of recurrent variable decelerations reason for which Oxytocin has been d/c since about 10pm. I was consulted for arrest of dilation and persistent category 2 tracing far from delivery. History of Present Dating criteria: based on LMP care: good care Ultrasounds: normal 1st trimester US and normal mid trimester US complications: chronic hypertension History History 4 Elective abortions 0 Para 1 Spontaneous abortions 0 Hx # Term Pregnancies 1 Ectopic pregnancies Hx # Pregnancies 1 Multiple births 0 Number of Living Children 1 Labs Blood type: O (+) positive Rubella: immune RPR/VDLR: nonreactive GBS status: unknown HBsAG: negative OB Labs: Lab Assessment Start: 03/25/25 10:03 Freq: ONCE Status: Complete Protocol: PC.OBGBS Activity Type Activity Date Activity User E-sign Co-sign Detail Recorded Client Recorded Date Recorded By Document 03/25/25 10:04 ADELE [id number] 03/25/25 10:09 ADELE 03/25/25 10:04 Lab Assessment GBS Status unknown GBS Additional Criteria None Is Patient Allergic to Penicillin? No Are Labs Available Yes Maternal Blood Type O Maternal RH Factor Positive Evaluate Maternal Rubella Immune Status Immune Hepatitis B Surface Antigen Negative Maternal HIV Status Negative Maternal Syphillis (RPR) Status Negative Review of Systems Status of ROS: Reports: 10 or more systems reviewed and unremarkable except as noted in History and below [facility] Medical History History of irregular menstrual bleeding ?Z87.42 - Personal history of other diseases of the female genital tract (ICD-10) History of IUFD (05/07/20) ?Z87.59 - Personal history of other complications of , childbirth and the puerperium (ICD-10) Surgical History History of appendectomy (~2006) ?Z90.49 - Acquired absence of other specified parts of digestive tract (ICD- 10) Status post primary low transverse section (04/01/21) ?Z98.891 - History of uterine scar from previous surgery (ICD-10) Social History Narrative: Cis-gender, heterosexual woman. Relationship status: . Spouse/Partner: Bipin Education: not reported Occupation: Not reported Tobacco: Lifetime nonsmoker E-cigarettes: No Alcohol: None during Illicit/recreational drugs: No Safety concerns at home or work: None Dietary restriction(s): None Exercise: No. What is your current living situation?: I presently have a place to live Problems where you live: no known problems In the past 12 months, utilities in danger of being shut off: no In past 12 months, lack of transportation kept you from medical appts, meetings, work, or getting things needed for daily living: no In the past 12 mos, have been you worried that your food would run out before you had money to buy more?: never true In the past 12 mos, the food you bought just didn't last and you didn't have money to buy more?: never true Smoking Status: Never smoker How often do you have a drink containing alcohol: never AUDIT-C Alcohol total score: 0 Non-prescribed substance use: denies use How often does anyone, including family, friends and others, physically hurt you : never How often does anyone, including family, friends and others, insult or talk down to you: never How often does anyone, including family, friends and others, threaten you with harm: never How often does anyone, including family, friends and others, scream or curse at you: never Meds Home Medications and Allergies Home Medications ?Medication ?Instructions ?Recorded ?Confirmed ?Type aspirin 81 mg tablet,delayed 81 mg PO QDAY 12/22/24 History release (Adult Aspirin Regimen) vits no.126-ferrous fum tab PO QDAY 12/22/24 03/19/25 History 28 mg iron-folic acid 800 mcg tablet (Classic ) labetalol 100 mg tablet mg PO BID 03/19/25 03/19/25 History Allergies Allergy/AdvReac Type Severity Reaction Status Date / Time No Known Drug Allergies Allergy Verified 03/19/25 13:10 OB - H&P: Exam Physical Exam: Vital signs: Temp Pulse Resp BP Pulse Ox 98.6 F 101 H 20 106/51 L 98 03/26/25 21:53 03/26/25 21:53 03/26/25 21:53 03/26/25 21:53 03/26/25 18:09 Narrative: NST: 140bpm/moderate variability/positive accelerations/no decelerations at this moment, but recurrent variable decelerations for the past 1-2 hours/ irregular uterine contractions. OB - Results Labs Labs: 03/25/25: hemoglobin: 12.6, platelets: 266 Normal AST, ALT, BUN and creatinine OB - CN: A/P Assessment and Plan (1) Desires (vaginal after ) trial: Status: Acute (2) Morbid obesity with body mass index (BMI) of 40.0 to 44.9 in adult: Status: Acute (3) History of delivery, currently : Status: Acute (4) Chronic hypertension: Status: Acute Plan 1. Arrest in dilation and persistent category 2 tracing far from delivery, failed VTOLAC. Recommend to proceed with delivery. Discussed how procedure is performed, family centered delivery approach and usual recovery. Discussed risks of surgery: bleeding and needing a blood transfusion- patient agrees if needed, infection, damage to organs nearby, blood clots. Discussed interventions to decrease risks such as prophylactic antibiotics, placement of Lundberg catheter and SCDs. Informed consent signed by patient. 2. Prolonged induction of labor with Oxytocin, plan to utilize prophylactic TXA after umbilical cord clamp. In the setting of chronic hypertension will avoid Methergine and utilize Cytotec, Hemabate if needed. 3. High risk for blood clots, recommend prophylactic Lovenox after delivery. 4. Chronic hypertension controlled on Labetalol 100mg BID, will continue .
[2025-03-27] VITALS (22 sets, daily range): BP systolic 88–159; BP diastolic 58–101; PULSE 86–122; RESP 16–28; TEMP 36.3–37.1; O2SAT 95–100
[2025-03-27] MEDS: AZITHROMYCIN 500 MG in 0.9 % SODIUM CHLORIDE 250 ml 250 ML 255 MG IVPB (00:18)
[2025-03-27] MEDS: LACTATED RINGERS 1000 ML 1,000 ML 125 ML IV ×2 (00:25→01:11)
[2025-03-27] MEDS: miSOPROStoL 800 MCG/4 TABLET PR (00:59)
--- NOTE | 2025-03-27 01:36 | SUR.OPER ---
[facility] PT BROUGHT TO OR #5 BY LABORING BED. TRANSFERRED TO SURGICAL BED. NO TIME OUT PREFORMED.
--- NOTE | 2025-03-27 02:01 | P.OBPRC_ITS ---
OB Delivery Proc Additional Procedures Tubal Ligation at the time of : No Other: No Procedure Date of procedure: 03/27/25 Pre-op diagnosis: Non reassuring heart rate, arrest in dilation, chronic hypertension on medication, history of IUFD Post-op diagnosis: same Procedure Done: only Will [facility] bill your pro fee for this procedure?: Yes Blood Loss Measurement Type: QBL (073) Bakri Used: No IV fluids (mL): 1,250 Urine Output (mL): 100 Urine Output Comment: Clear at end of procedure Surgeon: Ibrahima Pelayo MD Anesthesia Type: General Findings: FINDINGS: Live-born male , vertex ROT presentation, loose umbilical cord wrapped around body, presented over head. Apgars 8 and 8 at 1 and 5 minutes respectively. weight 6 lb 14 oz. Arcuate uterus. Grossly normal bilateral fallopian tubes and ovaries. Procedure Name: Emergency vacuum assisted repeat low transverse delivery Procedure Description: While waiting for OR team to finish preparing OR to proceed with surgery, I was notified that heart rate was down in the 60s and patient was placed in hands and knees. Upon evaluation at bedside, FSE was in place as well as IUPC. I proceeded to complete a cervical check but was unable to complete it in hands and knees position and patient was placed supine with a lateral tilt. I was able to check her and cervix was still 5-6cm, FSE seemed loose but confirmed to be in place. No cord prolapse noted. I tried to elevate the head a bit to try to relief any possible cord compression, but heart rate continued in the 60s. heart rate in the 60s for about 4-5 minutes. Maternal heart rate confirmed to be in the 120s. Decision made to call code white and proceed with emergency delivery. Patient was moved to OR and I attempted bedside US to re e valuate FHR and try to avoid general anesthesia, but due to patient body habitus-shadowing prevented to complete adequate assessment of heart rate and decision was made to proceed with surgery under general anesthesia. PROCEDURE: The patient was placed supine and a splash of Betadine was made over abdomen and previous incision site. Surgical drape was placed and after obtaining general anesthesia a Pfannenstiel skin incision was made with a scalpel along the line of the patient's previous Pfannenstiel scar. This incision was carried down to the underlying layer of fascia with the scalpel. The fascia was incised in the midline and the incision extended laterally. The rectus muscles were then in the midline. Peritoneum was entered bluntly and extended. No adhesions identified. The Alejo O retractor was then placed into the incision. The lower uterine segment was then incised in a transverse fashion with the scalpel. Upon entry into the uterus, clear amniotic fluid was noted. The uterine incision was extended cephalo caudally with blunt finger fractionation. The infant's head was brought up to incision, loose umbilical cord also noted over head. Fundal pressure did not achieve delivery of head due to maternal body habitus and I asked for a Kiwi Vacuum to assist with delivery. This was placed in the occiput, pressure applied and with one gentle push head delivery was achieved atraumatically, followed by the remainder of the infant's body. Pressure released and vacuum removed immediately. The cord was doubly clamped and cut and the was handed off the field for evaluation. The placenta was delivered spontaneously with umbilical cord traction and fundal massage. The uterus was cleared of all clots and debris. The uterine incision was reapproximated in a running locking fashion with a 0 Vicryl suture. A 2nd layer of the same suture was used to imbricate in horizontal fashion. Hemostasis secured. Mild uterine atony noted that responded well to 30 units of Oxytocin and 800mcg of rectal Cytotec. The gutters were inspected and cleared of blood clots. All instruments and retractors were removed. The anterior peritoneum was reapproximated in a running fashion with a 3-0 Vicryl suture. The subfascial tissues were carefully inspected and hemostasis assured. The fascia was reapproximated in a running fashion with a looped 0 PDS suture. The subcutaneous tissues were copiously irrigated. Hemostasis was assured. The subcutaneous fat layer was reapproximated with continuous sutures of 3-0 Vicryl. Due to emergency nature of procedure usual pubic hair clippings was not completed prior to incision, at this time it was evidently needed to avoid hair inside incision. A sterile glove was placed to cover surgical clipper and with [place]an hair was removed. Incision was inspected thoroughly to make sure that no remains were left inside incision. The skin was then closed in a subcuticular fashion with 4-0 Monocryl. LiquiBand and silver dressing were applied. Silver dressing will be left in place for 7 days. The patient tolerated the procedure well. Sponge, lap, needle, and instrument counts were reported as correct x2. The patient was taken to the recovery room, awake, and in stable condition. She did receive 3 grams of IV Ancef, 500mg of IV Azithromycin preoperatively. 1g of TXA was also given after cord clamp. Lundberg catheter was placed after completion of surgery. Complications: Emergency delivery. Pathology: specimen obtained, sent to pathology (Placenta ) Surgery Debrief Performed: Yes Condition: stable Disposition: PACU [place] Infant total score - 1 minute: 8 total score - 5 minute: 8
--- NOTE | 2025-03-27 02:48 | W.PM.NB ---
Nerve Block Nerve Block Time Seen by Provider: 02:20 Date Seen: 03/27/25 Type of block requested by surgeon for post-operative analgesia: TAP Side: bilateral Time out performed: Yes Verification of patient name: Yes Verification of date of : Yes Site marking: not applicable Name of person performing procedure: Marbin Mccallum Continuous monitoring Was continuous monitoring of O2 sat, B/P, radiographer cardiac catheterization, recorded every 15 minutes?: Yes Procedure Checklist: sterile prep, needles and gloves Ultrasound guided. Images saved: Yes Medications given in 5ml increments after negative aspiration: Marcaine %: 0.25 mL: 30 Needle gauge: 20 and Exparel mL: 10 Needle gauge: 20 Patient tolerated procedure well: Yes Block Charges Block Charge (with Pro Fee): TAP Bilateral Use of Ultrasound Machine for Block: Yes- US Guidance/pain block
--- NOTE | 2025-03-27 02:49 | P.ANES_ITS ---
Anesthesia Charges Start Date/Time Anesthesia Start Date: 03/27/25 Anesthesia Start Time: 00:36 Stop Date/Time Anesthesia Stop Date: 03/27/25 Anesthesia Stop Time: 02:28 Summary Emergency: MIS SPECIALIST Coding CPT Codes CPT Codes: ANESTH CS DELIVERY - 84652 ([id number]) P3 - PATIENT W/SEVERE SYS DISEASE, QZ - MIS SPECIALIST SVC W/O AUTO TRANSMISSION SPECIALIST BY Additional Codes: Summary - Emergency: MIS SPECIALIST ([id number])
--- NOTE | 2025-03-27 02:49 | W.ANESCHARGE ---
Anesthesia Charges Start Date/Time Anesthesia Start Date: 03/27/25 Anesthesia Start Time: 00:36 Stop Date/Time Anesthesia Stop Date: 03/27/25 Anesthesia Stop Time: 02:28 Summary Emergency: BRAZE OPERATOR Coding CPT Codes CPT Codes: ANESTH CS DELIVERY - 88057 ([id number]) P3 - PATIENT W/SEVERE SYS DISEASE, QZ - BRAZE OPERATOR SVC W/O PULMONARY DISEASE SPECIALIST BY Additional Codes: Summary - Emergency: BRAZE OPERATOR ([id number])
[2025-03-27] MEDS: LACTATED RINGERS 1000 ML 1,000 ML 100 ML IV ×2 (02:55→03:03)
[2025-03-27] MEDS: ACETAMINOPHEN 500 MG TABLET 1000 MG PO ×4 (03:44→21:11)
[2025-03-27] MEDS: DOCUSATE SODIUM 100 MG CAPSULE PO (08:46)
[2025-03-27] MEDS: LABETALOL HCL 100 MG TABLET PO (08:46)
[2025-03-27] MEDS: ENOXAPARIN 40 MG/0.4 ML INJ SUBCUT (21:11)
[2025-03-28 06:57] LABS: Hemoglobin* 9.7 gm/dL (12.0-16.0)
[2025-03-28] MEDS: LABETALOL HCL 100 MG TABLET PO ×2 (08:48→21:00)
[2025-03-28] MEDS: DOCUSATE SODIUM 100 MG CAPSULE PO (08:48)
[2025-03-28 09:07] VITALS: BP 127/86; PULSE 90; RESP 16; TEMP 37.1; O2SAT 97
--- NOTE | 2025-03-28 10:38 | P.OBPN_ITS ---
OB - PN:Subj Subjective Date Seen: 03/28/25 Interval history: Lluvia is a 30-year-old G4 now P 2-1-0-2 woman who is status post emergent repeat on 03/27/2025 at 37 weeks, 1 day gestation the setting of nonreassuring status during TOLAC. surgery was uncomplicated with QBL 91 8. There was a prolonged deceleration into the 60s just prior to ; thus, was done without the usual sterility. She was delivered of male noted to have umbilical cord presenting over head. 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 Ob problem list: Chronic hypertension on medication. Maintained on labetalol 100 mg b.i.d. during her course. Her blood pressure was low enough on evening of 03/27/2025 to hold medication. History of IUFD BMI > 40. Treated with Lovenox prophylactically during her course, increased to intermediate dosing (40 mg b.i.d.) on postoperative day 1. [facility] patient, Dr. Newton Today, on POD #1, she has no complaints. She is her infant son. She is ambulating and urinating without difficulty. She denies any heavy bleeding. She is tolerating a regular diet and passing flatus. She reports that pain is well controlled. OB - PN: Obj Exam Physical Exam: Vital signs: Temp Pulse Resp BP Pulse Ox O2 Del Method 98.7 F 90 16 127/86 97 Room Air 03/28/25 09:07 03/28/25 09:07 03/28/25 09:07 03/28/25 09:07 03/28/25 09:07 03/28/25 09:07 Narrative: General: Pleasant, no acute distress Heart: Regular rate and rhythm, no murmur or gallop Lungs: Clear to auscultation bilaterally Abdomen: Normoactive bowel sounds. Pannus noted. Silver dressing clean, dry, and intact beneath the pannus. Lower extremities: Trace edema, erythema OB - PN: Obj Data Labs Labs: Laboratory Results - last 24 hr 03/28/25 06:45 Hgb 9.7 L OB - PN: A/P Delivery Assessment and Plan (1) Chronic hypertension: Status: Acute Assessment and Plan: Maintained on labetalol 100 mg b.i.d. throughout . We will continue this does on last her blood pressures are too low to do so. (2) Anemia associated with acute blood loss: Status: Acute Assessment and Plan: Begin ferrous sulfate every 48 hours. (3) S/P emergency section: Status: Acute Assessment and Plan: In the setting of TOLAC for nonreassuring status / bradycardia. performed without the usual sterility given this scenario. Silver dressing in place, to be removed on postoperative day 7. (4) BMI 40.0-44.9, adult: Status: Acute Assessment and Plan: Increase Lovenox dosing to 40 mg b.i.d. for the remainder of her hospital stay. Plan day: 1 Comments: Anticipate discharge tomorrow or Sunday.
[2025-03-28] MEDS: FERROUS SULFATE 325 MG TABLET PO (11:07)
[2025-03-28] MEDS: ENOXAPARIN 40 MG/0.4 ML INJ SUBCUT ×2 (11:08→22:45)
[2025-03-28 11:12] VITALS: BP 106/73; PULSE 78; RESP 18; TEMP 36.7; O2SAT 96
[2025-03-28] MEDS: IBUPROFEN 600 MG TABLET PO ×2 (14:30→20:59)
[2025-03-28] MEDS: BENZOCAINE/MENTHOL 1 EACH LOZENGE MUCOUS MEM (14:53)
[2025-03-28 16:51] VITALS: BP 119/74; PULSE 99; RESP 16; TEMP 37.2; O2SAT 98
[2025-03-28 20:50] VITALS: BP 110/74; PULSE 90; RESP 18; TEMP 37.1; O2SAT 98
[2025-03-29 00:50] VITALS: BP 101/64; PULSE 83; RESP 16; TEMP 36.5; O2SAT 97
[2025-03-29] MEDS: IBUPROFEN 600 MG TABLET PO ×2 (03:20→10:33)
[2025-03-29] MEDS: SODIUM CHLORIDE 0.9 % (FLUSH) 10 ML SYRINGE IVF (03:22)
[2025-03-29 04:45] VITALS: BP 104/68; PULSE 78; RESP 18; TEMP 36.9; O2SAT 97
--- NOTE | 2025-03-29 09:52 | P.DS_ITS ---
DS: Providers Provider Time Seen by Provider: 09:30 Date Seen: 03/29/25 Date of admission: 03/25/25 09:36 Primary care physician: Precious Newton MD Admitting Clinician: Precious Newton MD Attending Physician on discharge: Noa Laws MD Date of Discharge: 03/29/25 DS: Diagnosis Discharge Diagnosis (1) S/P emergency section: Status: Acute (2) Anemia associated with acute blood loss: Status: Acute (3) Chronic hypertension: Status: Acute Exam Const: Vital Signs, click to edit/add: Vital Signs - 24 hr 03/28/25 11:12 03/28/25 16:51 03/28/25 20:50 Temperature 98.1 F 99.0 F 98.7 F Pulse Rate [Left P ulse Oximeter] 78 99 90 Respiratory Rate 18 16 18 Blood Pressure [Ri ght Arm] 106/73 119/74 110/74 Pulse Oximetry 96 98 98 Oxygen Delivery Me thod Room Air Room Air Room Air 03/29/25 00:50 03/29/25 04:45 Temperature 97.7 F 98.4 F Pulse Rate [Left P ulse Oximeter] 83 78 Respiratory Rate 16 18 Blood Pressure [Ri ght Arm] 101/64 104/68 Pulse Oximetry 97 97 Oxygen Delivery Me thod Room Air Room Air Documenting provider has reviewed patient's vital signs: yes Common normals: no apparent distress and oriented x3 General appearance: cooperative and comfortable Resp: Common normals: normal respiratory effort Cardio: Common normals: regular rate and regular rhythm Rate: regular rate Rhythm: regular rhythm GI: Common normals: soft to palpation and non-tender Inspection: normal to inspection and incision (Bandaged with silver Mepilex dressing) Palpation: soft Extremity: Common normals: normal to inspection Neuro: Common normals: oriented x3 Psych: Common normals: affect normal OB - DS: Summary Hospital Course Hospital Course: The patient is a 30 year old G 4 P 2102 at 37 weeks gestation that was admitted to the Center on 03/25/25 for induction of labor secondary to chronic hypertension on medications. She desired trial of labor after section. Labor was induced with pitocin. She proceeded an emergent repeat delivery for non reassuring heart tones and arrest of dilation. She delive red a viable male infant. She is breast feeding. the patient has done well. BP has been stable. Peripartum Data Infant delivery method: Repeat Section Procedures: Procedures Operation Date: 03/27/25 01:30 Actual Procedure Side Surgeon p REPEAT LOW TRANSVERSE Section Amy Pelayo MD complications: none [place] Gender: Male Infant Discharge Plan: Home Status at Discharge Functional status at discharge: independent ambulation Overall status at discharge: patient is back to baseline Time Spent with Patient Time attestation: Total time spent providing and/or coordinating discharge services: Discharge Plan Discharge Disposition: Home, Self-Care Date of Admission: 03/25/25 09:36 Attending Provider on Discharge: Noa Laws Primary Care Provider: Precious Newton Condition: Stable Anticipated Discharge Date/Time: 03/29/25 09:59 Discharge Medications: New docusate sodium 100 mg Capsule 100 mg PO DAILY Qty: 30 0RF ibuprofen 600 mg Tablet 600 mg PO Q6H PRN (Reason: Pain) Qty: 30 0RF oxycodone 5 mg Tablet 5 - 10 mg PO Q6H PRN (Reason: Pain) Qty: 20 0RF Continued Classic 28 mg iron- 800 mcg tablet PO QDAY aspirin [Adult Aspirin Regimen] 81 mg tablet,delayed release (DR/EC) 81 mg PO QDAY labetalol 100 mg tablet PO BID Discharge Orders: Discharge Order (Routine); Ordered 03/29/25 Ordered By: Noa Laws Patient Education: OB High Blood Pressure DC, OB Over the Counter Medication Information, OB /Breast Feeding Additional Instructions: [facility] for postop check/dressing removal. Follow up with primary provider in 1-3 days for BP check, and for routine care. Activity Level: Activity as Tolerated and No strenuous activity Discharge Diet: Regular Follow Up Appointments: Precious Newton MD [Primary Care Provider, Family Practice] Forms: Patient Belongings, [facility] Info Instructions DS:Data Additional Comments Additional comments: Hgb 9.7
[2025-03-29 10:30] VITALS: BP 105/71; PULSE 83; RESP 18; TEMP 36.7; O2SAT 97
[2025-03-29] MEDS: ENOXAPARIN 40 MG/0.4 ML INJ SUBCUT (10:32)
[2025-03-29] MEDS: DOCUSATE SODIUM 100 MG CAPSULE PO (10:33)
[2025-03-29] MEDS: LABETALOL HCL 100 MG TABLET PO (10:34)
--- NOTE | 2025-03-30 15:25 | W.PM.LAC.MC ---
Consult Note - Mom Date of Visit Date of visit: 03/30/25 Reason for consultation: Assistance Needed and Infant Weight Concern (11% weight loss at clinic today) Visit Code: Visit Patient's Information Phone number: [phone] : 3 Para: 2 Allergies No Known Drug Allergies Allergy (Verified 03/19/25 13:10) Mother's Medical History: Medical History (Updated 03/28/25 @ 10:56 by Kimmy Brown MD) History of irregular menstrual bleeding ?Z87.42 - Personal history of other diseases of the female genital tract (ICD-10) History of IUFD (05/07/20) ?Z87.59 - Personal history of other complications of , childbirth and the puerperium (ICD-10) Work Plans: home with baby Delivery Information Delivery type: Primary C/S; Labored Gestational Age: 37+2 Gestational Weight For Age: AGA Weight: 3.12 kg Discharge Weight: 2.86 kg Percentage weight loss: 8.4 Baby's Information Baby's Age at Visit: 3 days Baby's Provider or Clinic: [facility] [place] Jaundice: Yes Past Experience Past Experience: Yes (for 11 months) Current Frequency of Day Feedings: every 2-3 hours Frequency of Night Feedings: every 3 hours, waking baby for all feedings, he's very sleepy Both Breasts: Yes Suck: strong, but gets tired Latch: mostly ok, mom thinks he needs to be wider/deeper Length of Time: 10-15 min Goals: close to a year Pumping Pumping: Yes Quantity Pumped: one time last night with hand pump to give him a supplement since he hadn't Supplementing EBM Supplement: Yes Formula Supplement: No Baby Elimination Number of Wet Diapers a Day: ea feeding Number of BM a Day: had one this morning which was first since going home from hospital yesterd Breast/Nipple Condition Breast Information: Breasts are symmetrical with rounded lower quadrants, intramammary distance is less than 1.5 inches. No erythema. Nipples are supple, everted prior to feeding. Breast Shape: Pendulous Engorgement: No Maternal Nipple Condition - Left: Common Nipple Maternal Nipple Condition - Right: Common Nipple Sore Nipples: No Baby Assessment Skin: Yellow Tongue/frenulum: Normal/elastic Palate: Average Lips: Relaxed and Symmetrical Jaw Alignment: Symmetrical Mucosa: [place], moist Onsite Observation Pre-Feed weight: 2.766 kg Post-Feed weight: 2.78 kg Milk Transferred (mL): 14 Position: Cross cradle Attachment/latch-on achieved: With difficulty (repeated attempts to get him a deep enough latch) Suck pattern: Extended suck phase Swallow: Occasionally Behavior following feed: Relaxed, sleepy (after 2nd side, difficult to get nursing longer) and Alert, fussy (after 1st side) Pre-Nursing Left Nipple: Within Normal Limits Pre-Nursing Right Nipple: Within Normal Limits Post-Nursing Left Nipple: Within Normal Limits Post-Nursing Right Nipple: Within Normal Limits Assessments/Interventions Assessments/Interventions: Helen latched eagerly to first breast (RIGHT), but needed repeated latching to get a deep enough latch. Suckling ensued quickly with intermittent swallows seen/heard. Transferred 10 ml in 8 minutes and then came off the breast Then latched to mom's LEFT side, a bit deeper on this breast, nurses for 4 minutes and then too fatigued to continue Transferred 4 ml. Mom then pumped and hand expressed and this was fed to the baby. They are headed home and she will use her Spectra pump when she gets home. Education provided: Early feeding cues to maximize timing of latching, Asymmetric latch technique for wide/deep latch to increase milk, Transfer for baby and increase comfort for mom, Supply/demand nature of milk supply, Need for frequent stimulation/milk removal, Hand expression, Alternative feeding methods (SNS, cup, finger feeding, bottling), Pumping for milk management and Other (effect of 37+2 weeker PLUS jaundice PLUS 11% weight loss on successful feeding) Feeding Plan: Feed every 3 hours minimum No longer than 10 min ea side due to fatigue Then mom to pump after feedings and offer minimum of 15 ml to baby, more if he'll take it Discussed need to get him gaining weight, voiding and stooling to bring down bilirubin and this should help his nursing improve until then, she needs to pump to help bring in her milk and maintain her supply until he is more able to help with that Follow-Up Suggested follow up: Appointment in 1-3 days (recommended if he is not BFing better within 48 hours) Recommend baby be seen by provider for:: Based on their recommendations after they know bilirubin; likely within 1-2 days Time Spent Time spent with patient (min): 60 Meds Home Medications and Allergies Home Medications ?Medication ?Instructions ?Recorded ?Confirmed ?Type aspirin 81 mg tablet,delayed 81 mg PO QDAY 12/22/24 03/25/25 History release (Adult Aspirin Regimen) vits no.126-ferrous fum tab PO QDAY 12/22/24 03/19/25 History 28 mg iron-folic acid 800 mcg tablet (Classic ) labetalol 100 mg tablet mg PO BID 03/19/25 03/19/25 History docusate sodium 100 mg capsule 100 mg PO DAILY #30 caps 03/29/25 Rx ibuprofen 600 mg tablet 600 mg PO Q6H PRN Pain #30 tabs 03/29/25 Rx oxycodone 5 mg tablet 5 - 10 mg (1 - 2 x 5 mg) PO Q6H 03/29/25 Rx PRN Pain #20 tabs Allergies Allergy/AdvReac Type Severity Reaction Status Date / Time No Known Drug Allergies Allergy Verified 03/19/25 13:10
== END 2025-03-29 12:10 | disposition home or self-care (01) | DRG 540 ==
PROVIDERS: Obstetrics & Gynecology; Admitting Provider Family Medicine; PCP Family Medicine; Visit Provider Obstetrics & Gynecology
PROC: 10D00Z1 Extraction of Products of Conception, Low, Open Approach (ICD-10-PCS; CPT 59514; principal; 2025-03-27 01:30)
DX: O32.1XX0 Maternal care for breech presentation, not applicable or unspecified (principal); O34.211 Maternal care for low transverse scar from previous cesarean delivery; O10.92 Unspecified pre-existing hypertension complicating childbirth; O76 Abnormality in fetal heart rate and rhythm complicating labor and delivery; O61.0 Failed medical induction of labor; O62.0 Primary inadequate contractions; O90.81 Anemia of the puerperium; D62 Acute posthemorrhagic anemia; G89.18 Other acute postprocedural pain; O99.214 Obesity complicating childbirth; E66.01 Morbid (severe) obesity due to excess calories; O34.03 Maternal care for unspecified congenital malformation of uterus, third trimester; Q51.810 Arcuate uterus; Z37.0 Single live birth; Z3A.37 37 weeks gestation of pregnancy
CPT/HCPCS: 01961; 36415; 64488; 76942; 82565; 84450; 84460; 85018; 85025; 86592; 86850; 86900; 86901; 87081; 87653; 88307; 99140; G0463; A4314; A9270; J0330; J0456; J0665; J0666; J0690; J1171; J1650; J1885; J2270; J2274; J2371; J2405; J2590; J2704; J3010; J3490; J7050; J7120